=== PATIENT | female | born 1935 | race Caucasian/White ===

== ENCOUNTER 2019-02-21 06:38 | Emergency (ER) | payer OTHER, SELFPAY ==
[2019-02-21 06:46] VITALS: BP 116/53; PULSE 60; RESP 18; TEMP 36.1; O2SAT 96
[2019-02-21 07:19] LABS: Add Manual Diff / Slide Review NO; Basophils Absolute Auto 100 /uL (0-100); Basophils Percent Auto 0.8 % (0-2); Eosinophils Absolute Auto 200 /uL (0-450); Eosinophils Percent Auto 2.2 % (2-4); Hematocrit 38.1 % (36-46); Hemoglobin 12.8 g/dL (12.0-16.0); Lymphocytes Absolute Auto 4300 /uL (1100-4500); Lymphocytes Percent Auto 52.3 % (25-40); Mean Corpuscular HGB Conc 33.7 % (30-36); Mean Corpuscular Hemoglobin 31.6 PG (26-34); Mean Corpuscular Volume 93.9 fL (80-100); Monocytes Absolute Auto 800 /uL (0-900); Monocytes Percent Auto 9.7 % (3-14); Neutrophils Absolute Auto 2900 /uL (1500-7000); Platelet Count 177 X10^3/uL (150-400); Red Blood Cell Count 4.06 X10^6/uL (4.0-5.2); Red Cell Distribution Width 13.4 % (11.6-14.8); White Blood Cell Count 8.2 X10^3/uL (4.5-11.0)
[2019-02-21 07:23] LABS: Alanine Aminotransferase 28 IU/L (9-52); Albumin 3.8 g/dL (3.5-5.0); Albumin Globulin Ratio 1.6 (1.0-2.8); Alkaline Phosphatase 62 U/L (38-126); Aspartate Aminotransferase 24 IU/L (14-36); BUN Creatinine Ratio 28.3 (6-22); Bilirubin Total 0.7 mg/dL (0.2-1.3); Blood Urea Nitrogen 17 mg/dL (7-17); Calcium 8.9 mg/dL (8.4-10.2); Carbon Dioxide 29 mmol/L (22-32); Chloride 104 mmol/L (98-107); Estimated Glomerular Filt Rate > 60.0 mL/min (>60); Globulin 2.4 g/dL (1.7-4.1); Glucose 134 mg/dL (80-110); HEMOLYSIS < 15 (0-50); Potassium 3.7 mmol/L (3.4-5.1); Sodium 141 mmol/L (137-145); Total Protein 6.2 g/dL (6.3-8.2)
[2019-02-21] MEDS: SODIUM CHLORIDE 0.9% 1,000 ML 150 ML IV (07:23)
[2019-02-21] MEDS: ONDANSETRON 4 MG/2 ML INJ IV (07:23)
[2019-02-21 07:34] LABS: Troponin I < 0.012 ng/mL (0.01-0.034)
[2019-02-21 07:36] VITALS: BP 112/59; PULSE 64; RESP 11; O2SAT 91
--- NOTE | 2019-02-21 08:25 | ED_ITS ---
HPI - Dizziness General Chief Complaint: Dizziness Stated Complaint: Dizzy Time Seen by Provider: 02/21/19 07:04 Source: patient and EMS Mode of arrival: EMS Limitations: no limitations History of Present Illness HPI Narrative: This is an 83-year-old female who comes to the emergency department complaining of dizziness. Patient states that she has had pain on the left side of her neck with discomfort trying to rotate right for the last several days. [place] and was pa inting and sort of a uncomfortable position for a long period of time. She states since then she has continued have some discomfort. She took codeine at 3:00 p.m. yesterday then again at 9:00 p.m. and then at 2:30 a.m. in the morning. She states she was feeling okay that the pain kind of improved although still there lightly. She was sitting up drinking some coffee with her when she started feeling sweaty and very nauseated and dizzy. She describes her dizziness as feeling like her head was filling up while she was sitting upright. She states she has a history of seizures and sort of felt like that but she did have any actual seizure activity. She denies any vertigo or room spinning. She does not feel like she was going to pass out. She denies any headache. She continues to have some nausea and had some vomiting with EMS but not currently. She denies chest pain she thinks she may feel little short of breath but she is not sure. She denies any issues with some abdominal pain, no frequency urgency or dysuria or diarrhea constipation. She denies any weakness or numbness or difficulty with her extremities or walking. Patient states she has a history of being on a statin only. She does take some fish oil which she recently started. 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 She has had Mohs surgery and tonsillectomy. Denies any tobacco, occasional alcohol, no illicit day Dr. Yo is her PCP. Related Data Home Medications Medication Instructions Recorded Confirmed aspirin 81 mg PO QDAY #0 12/21/16 atorvastatin [Lipitor] 5 mg PO QDAY #0 12/21/16 Previous Rx's Medication Instructions Recorded cephalexin [Keflex] 500 mg PO Q6H 7 Days #0 cap 03/28/18 Allergies Allergy/AdvReac Type Severity Reaction Status Date / Time norepinephrine Allergy Unknown Verified 02/21/19 08:08 [NOREPINEPHRINE] Review of Systems Review of Systems ROS Unobtainable: All systems reviewed & are unremarkable except as noted in HPI and below Constitutional Denies chills, Denies fever(s), Denies headache(s), Denies lethargy and Denies weakness ENT Ears, Nose, Mouth, and Throat: Denies vertigo, Reports dizziness, Denies ear discharge, Denies otalgia, Denies headache(s), Denies neck mass, Reports neck pain and Denies disequilibrium Cardiovascular Denies chest pain, Reports diaphoresis, Denies syncope, Denies rapid heart rate, Denies edema, Denies irregular heart rhythm, Denies lightheadedness, Denies radiating jaw, neck or arm pain, Denies palpitations, Reports dyspnea, Denies dyspnea on exertion and Denies orthopnea Respiratory Denies change in phlegm color, Denies chest congestion, Denies cough, Reports dyspnea, Denies dyspnea on exertion and Denies wheezing Gastrointestinal Gastrointestinal: Denies abdominal pain, Denies change in bowel habits, Denies diarrhea, Reports nausea and Reports vomiting Genitourinary Denies hematuria, Denies urinary frequency, Denies dysuria, Denies flank pain, Denies urinary incontinence, Denies urinary hesitancy and Denies urinary urgency Musculoskeletal Reports as per HPI, Denies abnormal gait, Denies back pain, Reports limited range of motion, Reports neck pain, Denies numbness, Denies radiating pain into limb, Reports stiffness and Denies tingling Integumentary/Breasts Denies pruritus, Denies erythema, Denies rash and Denies wounds Neurologic Reports as per HPI, Denies abnormal movements, Denies abnormal speech, Denies abnormal gait, Denies vertigo, Reports dizziness, Denies syncope, Denies headache(s), Denies focal weakness, Denies numbness, Denies seizure-like activity, Denies sensory deficit, Denies tingling, Denies disequilibrium and Denies weakness Endocrine Denies palpitations Allergic/Immunologic Denies wheezing PFSH Social History Smoking Status: Never smoker Social History Smoking Status: Never smoker Exam Narrative Exam Narrative: GEN: well nourished, well appearing elderly female, alert and oriented x 3, patient appears to be in mild distress. HEENT: Atraumatic, pupils are equal round reactive to light, extraocular movements are intact, no nystagmus, nares are clear, TMs are clear with no fluid, there is no conjunctival pallor. Throat is clear without any exudates, erythema, tonsillar enlargement or uvular deviation, no facial droop. HEART: Regular rate and rhythm without murmur, clicks, rubs. No carotid bruits, pulses are equal in upper and lower extremities LUNGS:Lungs clear to auscultation, no wheezes, rales, crackles, chest moves symmetrically ABD:bowel sounds normal, soft, non-tender, no guarding, rebound, rigidity, no ma sses noted, no hepatosplenomegaly MSCL: Non-tender, no muscle atrophy, muscles strength 5/5 upper and lower extremities, full range of motion, gait not tested NEURO:CN 2-12 intact, sensation normal, reflexes 2/4 upper and lower extremities. finger nose finger test normal, heel felix test normal. Initial Vital Signs Initial Vital Signs: Vital Signs Temperature 96.9 F L 02/21/19 06:46 Pulse Rate 60 02/21/19 06:46 Respiratory Rate 18 02/21/19 06:46 Blood Pressure 116/53 L 02/21/19 06:46 Pulse Oximetry 96 02/21/19 06:46 Scores GCS Gideon coma scale eye opening: Spontaneous Gideon coma scale verbal response: Orientated Gideon coma scale motor response: Obey commands Gideon coma scale total score: 15 NIH Stroke Scale Level of Conciousness: Alert, keenly responsive Ask month/age: Answers both questions correctly. Open/close eyes, close hand: Performs both tasks correctly Best gaze horizontal: Normal Visual dorado: No visual loss Facial palsy: Normal symetrical movement Left arm drift: No drift for full 10 sec Right arm drift: No drift for full 10 sec Left leg drift: No drift for full 10 sec Right leg drift: No drift for full 10 sec Limb ataxia: Absent Sensory on face/arms/legs: Normal, no sensory loss Best language: No aphasia, normal Dysarthria: Normal Extinction or inattention: No abnormality Total NIH Stroke scale score: 0 Course Orders Ordered: Discontinued Medications Sodium Chloride (Normal Saline 0.9%) 1,000 mls @ 150 mls/hr IV CONT CRUZITO Last Infusion: 02/21/19 11:27 Dose: 0 mls/hr Admin: 02/21/19 07:23 Dose: 150 mls/hr Ondansetron HCl (Zofran) 4 mg IV NOW ONE Stop: 02/21/19 07:08 Last Admin: 02/21/19 07:23 Dose: 4 mg Vital Signs - 8 hr 02/21/19 11:00 02/21/19 11:23 Pulse Rate 75 75 Respiratory Rate 16 20 Blood Pressure 122/51 L Blood Pressure [Left Arm] 122/51 L Pulse Oximetry 97 97 MDM - Dizziness Lab Data Attestation: I reviewed the patient's lab results. Result diagrams: 02/21/19 06:30 02/21/19 06:30 Lab Results 02/21/19 02/21/19 02/21/19 Range/Units 06:30 06:30 06:30 WBC 8.2 (4.5-11.0) X10^3/uL RBC 4.06 (4.0-5.2) X10^6/uL Hgb 12.8 (12.0-16.0) g/dL Hct 38.1 (36-46) % MCV 93.9 (80-100) fL MCH 31.6 (26-34) PG MCHC 33.7 (30-36) % RDW 13.4 (11.6-14.8) % Plt Count 177 (150-400) X10^3/uL Neut % (Auto) 35.0 L (50-75) % Lymph % (Auto) 52.3 H (25-40) % [place] % (Auto) 9.7 (3-14) % Eos % (Auto) 2.2 (2-4) % Baso % (Auto) 0.8 (0-2) % Neut # (Auto) 2900 (5797-7827) /uL Lymph # (Auto) 4300 (6451-3184) /uL [place] # (Auto) 800 (0-900) /uL Eos # (Auto) 200 (0-450) /uL Baso # (Auto) 100 (0-100) /uL Sodium 141 (137-145) mmol/L Potassium 3.7 (3.4-5.1) mmol/L Chloride 104 (98-107) mmol/L Carbon Dioxide 29 (22-32) mmol/L BUN 17 (7-17) mg/dL Creatinine 0.60 (0.52-1.04) mg/dL Estimated GFR > 60.0 (>60) mL/min BUN/Creatinine Ratio 28.3 H (6-22) Glucose 134 H (80-110) mg/dL Calcium 8.9 (8.4-10.2) mg/dL Total Bilirubin 0.7 (0.2-1.3) mg/dL AST 24 (14-36) IU/L ALT 28 (9-52) IU/L Alkaline Phosphatase 62 (38-126) U/L Troponin I < 0.012 (0.01-0.034) ng/mL Total Protein 6.2 L (6.3-8.2) g/dL Albumin 3.8 (3.5-5.0) g/dL Globulin 2.4 (1.7-4.1) g/dL Albumin/Globulin Ratio 1.6 (1.0-2.8) Lipase 319 H (23-300) U/L Point of Care Testing Glucose POC 134 Urine Dip Bedside Urine Glucose Negative Bedside Urine Bilirubin - Negative Bedside Urine Ketone +/- 5 Urine Specific [place] 1.010 Bedside Urine Occult Blood - Negative Bedside Urine pH 8 Bedside Urine Protein - Negative Bedside Urine Urobilinogen - Negative Bedside Urine Nitrite - Negative Bedside Urine Leukocytes - Negative Esterase Imaging Data Head and neck angio: Radiologist's impression: Arlette Schneider 83 [address] [place] [address] CT Scan Report Signed Patient: WyattArlette R#: [id number] : 8Acct:[id number] Age/Sex: 83 / FDate of Service: 02/21/19 Loc: ED Accession Number: [id number] Procedure: CT angio head and neck Ordering Provider: Glo Perdomo D.O. PROCEDURE: CT ANGIO HEAD AND NECK INDICATIONS: dizziness, neck pain, nausea TECHNIQUE: Pre-contrast 4.5 mm thick sections acquired from the foramen magnum to the vertex. After the administration of intravenous contrast, 1 mm thick sections acquired from the aortic arch through the [place] of Brand. Post-contrast 4.5 mm thick sections then re- acquired from the foramen magnum to the vertex. 3-dimensional aijiylm-yrifeimak-dhynmihz on (MIP) and/or volume rendering reformats were acquired of the central intracranial vasculature and neck separately. COMPARISON: [facility], CT, HEAD W&WO CONTRAST, 10/21/2017, 7:47. [facility], MR, BRAIN (IAC) W AND WO CONTRAST, 11/18/2006, 7:54. FINDINGS: Image quality: Excellent. BRAIN: CSF spaces: Ventricles are normal in size and shape. Basal cisterns are patent. No extra-axial fluid collections. Brain: No midline shift. No intracranial bleeds or masses. [place]-white matter interface appears intact. Skull and face: Calvarium and facial bones appear intact, without suspicious lesions. Orbits appear normal. Sinuses: Sinuses and mastoids are clear. HEAD CT ANGIOGRAPHY: Anterior circulation: Intracranial internal carotid arteries are normal in size and flow. The flow within the paired anterior cerebral arteries is normal and sym metric. The flow within the middle cerebral arteries is normal and symmetric. The anterior communicating artery is seen. No aneurysms are seen. Posterior circulation: Visualized portions of the vertebral arteries demonstrate normal caliber, and join to form a normal appearing basilar artery. Flow within the posterior cerebral arteries is normal and symmetric. No aneurysms are seen. NECK CT ANGIOGRAPHY: Carotid system: The great vessels demonstrate a conventional anatomy as they arise from the aortic arch. The origins of the common carotid arteries appear patent. The common carotid arteries demonstrate normal caliber and courses. The bifurcation regions are both widely patent. The internal carotid arteries demonstrate normal calibers and courses. Posterior circulation: The origins of the vertebral arteries both appear widely patent. The more superior extracranial portions of both vertebral arteries also demonstrate normal courses and calibers. They join to form a normal appearing basilar artery. Soft tissues: Visualized neck soft tissues demonstrate no suspicious abnormalities. Bones: No suspicious bony lesions. Visualized cervical spine appears normally aligned. Cervical spine degenerative changes can be seen. IMPRESSION: No significant intracranial abnormality is seen. Unremarkable intracranial arteries, without findings of stenosis or occlusion. Within the arteries of the neck, no hemodynamically significant stenosis can be seen. Any quantitative measurements of stenosis were performed using NASCET criteria. Dictated by: Ron Rivera M.D. on 02/21/2019 at 8:17 Approved by: Ron Rivera M.D. on 02/21/2019 at 8:20 Chest x-ray: Radiologist's impression: [address] [address] XRay Report Signed Patient: Arlette Schneider JMR#: [id number] : 8Acct:[id number] Age/Sex: 83 / FDate of Service: 02/21/19 Loc: ED Accession Number: [id number] Procedure: XR chest 1V Ordering Provider: Glo Perdomo D.O. PROCEDURE: XR CHEST 1V INDICATIONS: dizziness, neck pain, nausea TECHNIQUE: One view of the chest was acquired. COMPARISON: [facility], , CHEST 1 VIEW, 10/12/2017, 3:45. [facility], , CHEST 1 VIEW, 12/21/2016, 18:30. FINDINGS: Surgical changes and devices: None. Lungs and pleura: Lungs are clear. No pleural effusions or pneumothorax. Mediastinum: Mediastinal contours appear normal. Heart size is normal. Bones and chest wall: No suspicious bony lesions. Overlying soft tissues appear unremarkable. IMPRESSION: Normal for age, source of current dizziness, neck pain and nausea symptoms is not seen. Dictated by: Mateo Pretty M.D. on 02/21/2019 at 8:59 Approved by: Mateo Pretty M.D. on 02/21/2019 at 9:01 ECG Data Attestation: I personally reviewed and interpreted this ECG as follows: Prior ECG tracings: available for review Interpretation: Sinus rhythm with first-degree AV block, right bundle branch, rate of 63 DC 234 QRS of 103 and QTC of 441. No ST changes that are new. MDM Narrative Medical decision making narrative: Patient comes in with complaint of dizziness by her description does not sound like vertigo. She does not sound lightheaded or like she is going to pass out. She has been complaining of pain in her neck which could be musculoskeletal but with her new onset dizziness, sweating and nausea felt it would be appropriate to get a head CT and angiography to evaluate for any sort of obstruction or dissection. Patient NIH is 0 and her descriptive symptoms otherwise do not fit with a stroke nor does her physical exam. Lab work shows a CBC which is normal, a PTT of 22, CMP shows glucose of 134 electrolytes and renal function are normal along with LFTs and troponin is negative. Chest x-ray and CTA of the head and neck are negative. Patient is ambulating without much issue. Patient urinated but then dumped into the toilet so we did not get a sample. Given some oral hydration and and attempted to get another sample. Discharge Plan Departure Patient Disposition: Home Clinical Impression: Dizziness Discharge Date/Time: 02/21/19 11:32 Interventions: ED Discharge Assessment Last Done: 02/21/19 11:23 Instructions: DI for Dizziness-Nonvertigo Activity Restrictions/Additional Instructions: Follow-up with primary care in the next 24-48 hours for recheck. You may continue home medications as prescribed. Return to the emergency department for sudden severe headaches, new weakness, numbness, vision changes or difficulty with speech severe neck or back pain, persistent vomiting, passing out, loss of bowel or bladder control or other new or concerning symptoms. Prescriptions: No Action atorvastatin [Lipitor] 10 MG tablet 5 mg PO QDAY Qty: 0 RF: 0 aspirin 81 MG tablet,delayed release (DR/EC) 81 mg PO QDAY Qty: 0 RF: 0 cephalexin [Keflex] 500 MG capsule 500 mg PO Q6H 7 Days Qty: 0 RF: 0 Referrals: Jose Yo MD [Primary Care Provider] - ED Cosign/Signout Cosign ED Attending Cosignature Attestation: I was immediately available in the department for consultation. This documentation has been reviewed and I agree with assessment and plan. Supervised by Glo Perdomo DO
[2019-02-21 08:45] LABS: Lipase 319 U/L (23-300)
--- NOTE | 2019-02-21 09:01 | DI.CT.S_ITS ---
PROCEDURE: CT ANGIO HEAD AND NECK INDICATIONS: dizziness, neck pain, nausea TECHNIQUE: Pre-contrast 4.5 mm thick sections acquired from the foramen magnum to the vertex. After the administration of intravenous contrast, 1 mm thick sections acquired from the aortic arch through the [place] of Brand. Post-contrast 4.5 mm thick sections then re-acquired from the foramen magnum to the vertex. 3-dimensional tikfcrj-podwzctwz-tvnvlzguzc (MIP) and/or volume rendering reformats were acquired of the central intracranial vasculature and neck separately. COMPARISON: [facility], CT, HEAD W&WO CONTRAST, 10/21/2017, 7:47. [facility], MR, BRAIN (IAC) W AND WO CONTRAST, 11/18/2006, 7:54. FINDINGS: Image quality: Excellent. BRAIN: CSF spaces: Ventricles are normal in size and shape. Basal cisterns are patent. No extra-axial fluid collections. Brain: No midline shift. No intracranial bleeds or masses. Bag[place]-white matter interface appears intact. Skull and face: Calvarium and facial bones appear intact, without suspicious lesions. Orbits appear normal. Sinuses: Sinuses and mastoids are clear. HEAD CT ANGIOGRAPHY: Anterior circulation: Intracranial internal carotid arteries are normal in size and flow. The flow within the paired anterior cerebral arteries is normal and symmetric. The flow within the middle cerebral arteries is normal and symmetric. The anterior communicating artery is seen. No aneurysms are seen. Posterior circulation: Visualized portions of the vertebral arteries demonstrate normal caliber, and join to form a normal appearing basilar artery. Flow within the posterior cerebral arteries is normal and symmetric. No aneurysms are seen. NECK CT ANGIOGRAPHY: Carotid system: The great vessels demonstrate a conventional anatomy as they arise from the aortic arch. The origins of the common carotid arteries appear patent. The common carotid arteries demonstrate normal caliber and courses. The bifurcation regions are both widely patent. The internal carotid arteries demonstrate normal calibers and courses. Posterior circulation: The origins of the vertebral arteries both appear widely patent. The more superior extracranial portions of both vertebral arteries also demonstrate normal courses and calibers. They join to form a normal appearing basilar artery. Soft tissues: Visualized neck soft tissues demonstrate no suspicious abnormalities. Bones: No suspicious bony lesions. Visualized cervical spine appears normally aligned. Cervical spine degenerative changes can be seen. IMPRESSION: No significant intracranial abnormality is seen. Unremarkable intracranial arteries, without findings of stenosis or occlusion. Within the arteries of the neck, no hemodynamically significant stenosis can be seen. Any quantitative measurements of stenosis were performed using NASCET criteria. Dictated by: Ron Rivera M.D. on 02/21/2019 at 8:17 Approved by: Ron Rivera M.D. on 02/21/2019 at 8:20
[2019-02-21 09:05] VITALS: BP 135/65; PULSE 66; RESP 12; O2SAT 100
[2019-02-21 10:14] VITALS: BP 120/58; PULSE 69; RESP 11; O2SAT 93
[2019-02-21 11:00] VITALS: BP 122/51; PULSE 75; RESP 16; O2SAT 97
[2019-02-21 11:23] VITALS: BP 122/51; PULSE 75; RESP 20; O2SAT 97
== END 2019-02-21 11:32 | disposition home or self-care (01) ==
PROVIDERS: Emergency Medicine; Emergency Provider Emergency Medicine; Family Provider Family Medicine; PCP Family Medicine
DX: R42 Dizziness and giddiness (principal)
CPT/HCPCS: 70496; 70498; 71045; 80053; 81003; 82962; 83690; 84484; 85025; 93005; 93010; 96361; 96374; 99283; 99285; J2405; Q9967

== ENCOUNTER 2019-08-02 14:41 | Emergency (ER) | payer OTHER, SELFPAY ==
[2019-08-02 14:52] VITALS: BP 122/66; PULSE 67; RESP 15; TEMP 36.4; O2SAT 98; BMI 25.7
--- NOTE | 2019-08-02 14:52 | DI.RAD.S_ITS ---
PROCEDURE: XR CHEST 1V INDICATIONS: chest pain TECHNIQUE: One view of the chest was acquired. COMPARISON: [facility], CR, XR CHEST 1V, 02/21/2019, 8:43. FINDINGS: Surgical changes and devices: None. Lungs and pleura: Lungs are clear. No pleural effusions or pneumothorax. Mediastinum: Mediastinal contours appear normal. Heart size is normal. Bones and chest wall: No suspicious bony lesions. Overlying soft tissues appear unremarkable. IMPRESSION: No acute cardiopulmonary disease process. Dictated by: Malorie Gilliam MD, PhD on 08/02/2019 at 15:07 Approved by: Malorie Gilliam MD, PhD on 08/02/2019 at 15:08
[2019-08-02 15:13] VITALS: BP 98/59; PULSE 73; RESP 14; O2SAT 96
[2019-08-02 15:20] LABS: Add Manual Diff / Slide Review NO; Basophils Absolute Auto 100 /uL (0-100); Basophils Percent Auto 1.1 % (0-2); Eosinophils Absolute Auto 100 /uL (0-450); Hematocrit 38.8 % (36-46); Hemoglobin 13.1 g/dL (12.0-16.0); Lymphocytes Absolute Auto 2200 /uL (1100-4500); Lymphocytes Percent Auto 31.5 % (25-40); Mean Corpuscular HGB Conc 33.8 % (30-36); Mean Corpuscular Volume 94.7 fL (80-100); Monocytes Absolute Auto 800 /uL (0-900); Monocytes Percent Auto 10.9 % (3-14); Neutrophils Absolute Auto 3800 /uL (1500-7000); Neutrophils Percent Auto 54.5 % (50-75); Platelet Count 173 X10^3/uL (150-400); Red Cell Distribution Width 13.4 % (11.6-14.8)
[2019-08-02 15:25] LABS: INR 0.9 (0.9-1.3); Prothrombin Time 10.6 SECONDS (10.1-12.7)
[2019-08-02 15:28] LABS: PTT Partial Thromboplastin Tim 28 SECONDS (26.4-36.2)
[2019-08-02 15:30] LABS: Alanine Aminotransferase 25 IU/L (<35); Albumin 4.2 g/dL (3.5-5.0); Albumin Globulin Ratio 1.6 (1.0-2.8); Alkaline Phosphatase 56 U/L (38-126); Aspartate Aminotransferase 58 IU/L (14-36); Bilirubin Total 0.3 mg/dL (0.2-1.3); Blood Urea Nitrogen 24 mg/dL (7-17); Calcium 9.2 mg/dL (8.4-10.2); Carbon Dioxide 31 mmol/L (22-32); Chloride 103 mmol/L (98-107); Creatine Kinase 236 U/L (30-135); Estimated Glomerular Filt Rate > 60.0 mL/min (>60); Globulin 2.6 g/dL (1.7-4.1); Glucose 70 mg/dL (80-110); HEMOLYSIS 24 (0-50); Lipase 243 U/L (23-300); Sodium 139 mmol/L (137-145); Total Protein 6.8 g/dL (6.3-8.2)
[2019-08-02 15:39] VITALS: BP 98/51; PULSE 70; RESP 15; O2SAT 95
[2019-08-02 16:12] LABS: CKMB % Relative Index 6.9 % (1.5-5.0)
[2019-08-02 16:21] VITALS: BP 103/51; PULSE 71; RESP 15; O2SAT 98
--- NOTE | 2019-08-02 17:07 | ED.CHESTPAIN ---
HPI - Chest Pain General Chief Complaint: Chest Pain Stated Complaint: Chest Pain thinks heart attack Time Seen by Provider: 08/02/19 15:01 Source: patient Mode of arrival: Ambulatory Limitations: no limitations History of Present Illness HPI narrative: Patient complains of a band like sensation of chest pain/pressure that started yesterday afternoon while she was shoveling snow. She characterizes it as a 5/10, made worse by the exertion of shoveling snow but not completely improved by anything. She states it lasted for the rest of the day. When patient woke up this morning, she states the pain was gone but the patient states she ?just didn't feel right?. Patient denies chest pain at this time. No shortness of breath or nausea. No abdominal pain. No fevers, chills, or cough. Patient has no history of coronary artery disease that she knows of. She states she is healthy other than hyperlipidemia, and takes a small dose of Lipitor on a daily basis for this. She states her cholesterol has been well controlled on the Lipitor. No other complaints at this time. Related Data Home Medications Medication Instructions Recorded Confirmed atorvastatin [Lipitor] 5 mg PO DAILY #0 12/21/16 08/02/19 Allergies Allergy/AdvReac Type Severity Reaction Status Date / Time norepinephrine Allergy Unknown Verified 08/02/19 14:52 [NOREPINEPHRINE] Review of Systems Constitutional Constitutional: Denies chills, Denies fatigue, Denies fever(s), Denies frequent falls, Denies lethargy and Denies weakness Eyes Eyes: Denies change in vision, Denies eye discharge, Denies irritation and Denies loss of vision ENT Ears, Nose, Mouth, and Throat: Denies change in voice, Denies dizziness, Denies neck pain, Denies sore throat and Denies throat swelling Cardiovascular Cardiovascular: Reports chest pain, Denies irregular heart rhythm, Reports lightheadedness, Denies palpitations, Denies dyspnea, Denies dyspnea on exertion and Denies orthopnea Respiratory Respiratory: Denies cough, Denies dyspnea, Denies dyspnea on exertion and Denies wheezing Gastrointestinal Gastrointestinal: Denies abdominal pain, Denies change in bowel habits, Denies diarrhea, Denies nausea and Denies vomiting Genitourinary Genitourinary: Denies hematuria, Denies flank pain, Denies urinary incontinence and Denies urinary urgency Musculoskeletal Musculoskeletal: Denies back pain, Denies muscle weakness, Denies neck pain, Denies numbness and Denies tingling Integumentary/Breasts Skin/Breast: Denies pruritus, Denies erythema, Denies rash and Denies wounds Neurologic Neurologic: Denies behavioral changes, Denies confusion, Denies dizziness, Denies frequent falls, Denies loss of vision, Denies numbness, Denies tingling and Denies weakness Psychiatric Psychiatric: Denies anxiety, Denies behavioral changes, Denies confusion, Denies depression, Denies homicidal ideation and Denies suicidal ideation Endocrine Endocrine: Denies fatigue, Denies flushing and Denies palpitations Hematologic/Lymphatic Hematologic/Lymphatic: Denies easy bruising Allergic/Immunologic Allergic/Immunologic: Denies urticaria, Denies throat swelling and Denies wheezing Patient History Medical History Hyperlipidemia (Acute) Seizure (Acute) Social History Smoking Status: Never smoker Smoking Status: Never smoker alcohol intake frequency: a few times a month Substance Use Type: does not use Exam Initial Vital Signs Initial Vital Signs: Vital Signs Temperature 97.5 F L 08/02/19 14:52 Pulse Rate 67 08/02/19 14:52 Respiratory Rate 15 08/02/19 14:52 Blood Pressure 122/66 08/02/19 14:52 Pulse Oximetry 98 08/02/19 14:52 Const General: cooperative and well developed Nutritional Appearance: well nourished [facility] Head: normocephalic and atraumatic Ears: external ears normal Nose: external nose normal and No nasal discharge Face and sinus: face symmetric and No dry mucous membranes Mouth: oral mucosae normal and moist mucous membranes Teeth and gingiva: dentition normal Eyes General: appearance normal, both eyes and all related structures Eyelids: eyelids normal Conjunctivae: conjunctivae normal Sclera: sclerae normal Pupils: PERRL EOM: EOM intact bilaterally Neck Neck: normal visual inspection, trachea midline, No lymphadenopathy, No midline deformity and No JVD Lymphatic: No lymphedema Chest Chest: normal inspection of the chest Resp Effort & Inspection: normal respiratory effort, able to speak in complete sentences, no respiratory distress and no use of accessory muscles Auscultation: clear to auscultation bilaterally, no rales, no rhonchi and no wheezes Cardio Rate: regular rate Rhythm: regular rhythm Heart Sounds: no click, no gallops, no murmurs and no rubs Pulses: normal peripheral pulses GI Inspection: non-distended Palpation: soft, no hepatosplenomegaly, No guarding, No pulsatile mass and No tender Auscultation: normal bowel sounds Back/Spine/Pelvis Back: No CVA tenderness Cervical Spine: cervical ROM normal and No pain with cervical ROM Thoracic/Lumbar Spine: thoracic and lumbar spine normal to inspection Skin General: no rashes or lesions noted, No jaundice and No petechiae Neuro General: alert, oriented x3, gait normal and no focal motor deficits Speech: speech normal Extrem General: full ROM, no clubbing, cyanosis or edema, no pedal edema and no calf tenderness Psych Appearance: well kempt Mental Status: mental status grossly normal Attitude: cooperative Thought Content: normal and suicidality Judgment: judgment good Course Course Course Narrative: Patient was worked up with labs and EKG, as well as chest x-ray. She was found have an elevated troponin of 3.38, and an EKG showed a potential anterior infarct of on determined age. Troponin was consistent and my and as such, we did contact [facility] to set up transfer for the patient to a facility with cardiology services. Ultimately, the patient was accepted by Dr. Devries at [facility]. Patient was agreeable to the plan of transfer, as was her . She had been started on a heparin drip in the emergency department and given aspirin. [facility] did request that Plavix not be administered at this time. Additionally, because the patient's blood pressure was borderline normal to low, I did hold off on giving the patient metoprolol this time. Additionally, as the patient was chest pain-free at this time, she was not given nitroglycerin. Patient remained stable until the time of her transfer. Orders Ordered: ED Orders 08/02/19 14:52 XR chest 1V Stat 08/02/19 14:55 Complete Blood Count AUTO DIFF Stat Comprehensive Metabolic Panel Stat Lipase Stat Partial Thromboplastin Time Stat Prothrombin Time INR Stat Troponin & CK Cardiac Panel Stat EKG-12 Lead Stat Heparin Sodium/Dextrose (Heparin Drip) 25,000 unit in 500 mls @ 16.329 mls/hr IV CONT CRUZITO; Protocol Last Titration: 08/02/19 18:36 Dose: 0 units/kg/hr, 0 mls/hr Documented by: Admin: 08/02/19 17:19 Dose: 12 units/kg/hr, 16.329 mls/hr Documented by: ALLAN Discontinued Medications Aspirin (Aspirin Chew) 324 mg PO NOW ONE Stop: 08/02/19 17:12 Last Admin: 08/02/19 17:19 Dose: 324 mg Documented by: ALLAN Heparin Sodium (Porcine) (Heparin) 5,000 unit IV NOW ONE Stop: 08/02/19 17:07 Last Admin: 08/02/19 17:19 Dose: 5,000 unit Documented by: ALLAN Vital Signs Vital signs: Vital Signs - 8 hr 08/02/19 14:52 08/02/19 15:13 08/02/19 15:39 Temperature 97.5 F L Pulse Rate 67 73 70 Respiratory Rate 15 14 15 Blood Pressure 122/66 Blood Pressure [Left Arm] 98/59 L 98/51 L Pulse Oximetry 98 96 95 08/02/19 16:21 08/02/19 17:35 08/02/19 18:33 Temperature Pulse Rate 71 81 71 Respiratory Rate 15 16 12 Blood Pressure Blood Pressure [Left Arm] 103/51 L 118/61 107/53 L Pulse Oximetry 98 98 98 MDM - Chest Pain Medical Records Data Attestation: I reviewed the patient's medical records. Lab Data Attestation: I reviewed the patient's lab results. Result diagrams: 08/02/19 14:55 08/02/19 14:55 Labs: Lab Results 08/02/19 08/02/19 08/02/19 Range/Units 14:55 14:55 14:55 WBC 7.0 (4.5-11.0) X10^3/uL RBC 4.10 (4.0-5.2) X10^6/uL Hgb 13.1 (12.0-16.0) g/dL Hct 38.8 (36-46) % MCV 94.7 (80-100) fL MCH 32.0 (26-34) PG MCHC 33.8 (30-36) % RDW 13.4 (11.6-14.8) % Plt Count 173 (150-400) X10^3/uL Neut % (Auto) 54.5 (50-75) % Lymph % (Auto) 31.5 (25-40) % [place] % (Auto) 10.9 (3-14) % Eos % (Auto) 2.0 (2-4) % Baso % (Auto) 1.1 (0-2) % Neut # (Auto) 3800 (9874-2122) /uL Lymph # (Auto) 2200 (3417-1534) /uL [place] # (Auto) 800 (0-900) /uL Eos # (Auto) 100 (0-450) /uL Baso # (Auto) 100 (0-100) /uL PT 10.6 (10.1-12.7) SECONDS INR 0.9 (0.9-1.3) APTT 28 (26.4-36.2) SECONDS Sodium 139 (137-145) mmol/L Potassium 4.0 (3.4-5.1) mmol/L Chloride 103 (98-107) mmol/L Carbon Dioxide 31 (22-32) mmol/L BUN 24 H (7-17) mg/dL Creatinine 0.80 (0.52-1.04) mg/dL Estimated GFR > 60.0 (>60) mL/min BUN/Creatinine Ratio 30.0 H (6-22) Glucose 70 L (80-110) mg/dL Calcium 9.2 (8.4-10.2) mg/dL Total Bilirubin 0.3 (0.2-1.3) mg/dL AST 58 H (14-36) IU/L ALT 25 (<35) IU/L Alkaline Phosphatase 56 (38-126) U/L Total Creatine Kinase 236 H (30-135) U/L CK-MB (CK-2) 16.30 H (<2.37) ng/mL CK-MB (CK-2) Rel Index 6.9 H* (1.5-5.0) % Troponin I 3.380 H* (0.01-0.034) ng/mL Total Protein 6.8 (6.3-8.2) g/dL Albumin 4.2 (3.5-5.0) g/dL Globulin 2.6 (1.7-4.1) g/dL Albumin/Globulin Ratio 1.6 (1.0-2.8) Lipase 243 (23-300) U/L ABG Data Attestation: I personally reviewed and interpreted this ABG as follows: (See below) Interpretation: Twelve lead EKG performed August 02 2019 at 2:55 p.m., as follows: Regular ventricular rhythm with a rate of 71 beats per minute IN interval 208 milliseconds QRS duration 103 milliseconds QTC interval [address] T wave changes Interpretation: Sinus rhythm; low QRS voltage in precordial leads; possible anterior myocardial infarction of indeterminate age; no STEMI; abnormal EKG as interpreted by ED MD. Discharge Plan Departure Patient Disposition: [facility] Clinical Impression: Acute non-ST elevation myocardial infarction (NSTEMI) Prescriptions: No Action atorvastatin [Lipitor] 10 MG tablet 5 mg PO DAILY Qty: 0 RF: 0 Referrals: Jose Yo MD [Primary Care Provider] -
[2019-08-02] MEDS: ASPIRIN 81 MG CHEW TAB 324 MG PO (17:19)
[2019-08-02] MEDS: HEPARIN DRIP 25,000 UNIT/500 ML IV.SOLN 16.329 UNIT IV (17:19)
[2019-08-02] MEDS: HEPARIN 5,000 UNIT/ML VIAL 5000 UNIT IV (17:19)
[2019-08-02 17:35] VITALS: BP 118/61; PULSE 81; RESP 16; O2SAT 98
--- NOTE | 2019-08-02 18:29 | PC.NURSE ---
report called to rafi rivas at [facility]
[2019-08-02 18:33] VITALS: BP 107/53; PULSE 71; RESP 12; O2SAT 98
--- NOTE | 2019-08-02 18:35 | PC.NURSE ---
pt transported with heparin drip continuing
== END 2019-08-02 18:38 | disposition short-term general hospital (02) ==
PROVIDERS: Emergency Provider Emergency Medicine; Family Provider Family Medicine; PCP Family Medicine
DX: I21.4 Non-ST elevation (NSTEMI) myocardial infarction (principal); E78.5 Hyperlipidemia, unspecified
CPT/HCPCS: 36415; 71045; 80053; 82550; 82553; 83690; 84484; 85025; 85610; 85730; 93005; 96365; 96375; 99285; J1644

== ENCOUNTER → 2019-08-09 07:55 | Outpatient (ROUT) | payer OTHER, SELFPAY ==
[2019-08-09 08:20] LABS: Troponin I 0.065 ng/mL (0.01-0.034)
== END ==
PROVIDERS: Family Provider Family Medicine; PCP Family Medicine; Visit Provider Family Medicine
DX: I21.3 ST elevation (STEMI) myocardial infarction of unspecified site (principal); R07.89 Other chest pain
CPT/HCPCS: 84484

== ENCOUNTER → 2019-11-29 14:19 | Outpatient (CLI) | payer OTHER, SELFPAY ==
--- NOTE | 2019-11-29 | DI.RAD.S_ITS ---
PROCEDURE: XR LUMBAR SPINE MIN 4V INDICATIONS: LOWER BACK PAIN AND RADIALOPATHY TECHNIQUE: 5 views of the lumbar spine acquired. COMPARISON: None. FINDINGS: Bones: 5 nonrib-bearing vertebrae are present. There is mild rightward curvature of lumbar spine centered at L3 level. Grade 1 retrolisthesis at L1-2, L2-3 and L4-5 levels are seen. No vertebral body compression fractures. Moderate to severe degenerative disc disease and bilateral facet arthrosis throughout lumbar spine is seen. No suspicious bony lesions. Soft tissues: Overlying bowel gas pattern is normal. No suspicious soft tissue calcifications. Flexion/extension: There is decreased range of motion with preserved lumbar spine alignment. IMPRESSION: Degenerative disc disease throughout lumbar spine with grade 1 retrolisthesis at L1-2, L2-3 and L4-5 levels. No acute compression fracture. Decreased range of motion with preserved lumbar spine alignment. Dictated by: Pratik Hernandez M.D. on 11/29/2019 at 16:06 Approved by: Pratik Hernandez M.D. on 11/29/2019 at 16:08
--- NOTE | 2019-11-29 | DI.RAD.S_ITS ---
PROCEDURE: XR HIP W PEL IF DONE LT MIN 4V INDICATIONS: LOWER BACK PAIN AND RADIALOPATHY TECHNIQUE: AP pelvis with lateral view(s) of the bilateral hip(s). COMPARISON: None. FINDINGS: Bones: No fractures or dislocations. Pelvic ring appears intact. Bilateral hip joint osteophytic changes are seen with joint space narrowing and subchondral sclerosis. No evidence of avascular necrosis of femoral heads. No suspicious bony lesions. Soft tissues: The visualized bowel gas pattern is normal. No suspicious soft tissue calcifications. IMPRESSION: Bilateral hip joint osteoarthritis. No hip fracture or dislocation. No evidence of avascular necrosis. Dictated by: Pratik Hernandez M.D. on 11/29/2019 at 15:57 Approved by: Pratik Hernandez M.D. on 11/29/2019 at 15:58
== END ==
PROVIDERS: Family Provider Family Medicine; PCP Family Medicine; Referring Provider Neurological Surgery; Visit Provider Neurological Surgery
DX: M54.5 Low back pain (principal); M47.26 Other spondylosis with radiculopathy, lumbar region; M51.16 Intervertebral disc disorders with radiculopathy, lumbar region; M16.0 Bilateral primary osteoarthritis of hip; M43.16 Spondylolisthesis, lumbar region
CPT/HCPCS: 72110; 73522

== ENCOUNTER → 2020-08-23 17:13 | Outpatient (CLI) | payer OTHER, SELFPAY | PROVIDERS: Visit Provider Nurse Practitioner | DX: N34.3 Urethral syndrome, unspecified (principal) | CPT/HCPCS: 87077; 87086; 87186 ==

== ENCOUNTER → 2020-10-03 12:05 | Outpatient (CLI) | payer OTHER, SELFPAY ==
--- NOTE | 2020-10-03 | DI.US.S_ITS ---
PROCEDURE: US RENAL COMPLETE INDICATIONS: UTI TECHNIQUE: Real-time scanning was performed of the kidneys and bladder, with image documentation. COMPARISON: None. FINDINGS: Kidneys: Kidneys are normal in size. Right kidney measures 11.4 cm long; left kidney measures 10.3 cm long. Right renal cortical thickness is 1.5 cm; left renal cortical thickness is 1.3 cm. Renal cortical echotexture is normal. 9 millimeter nonobstructing stone noted in the upper pole of the left kidney. 7 millimeter nonobstructing stone noted in the midpole of the left kidney. No hydronephrosis. No suspicious solid mass lesions. Bladder: Pre-void bladder volume is 132 mL. Post-void residual is 45 mL. Pre-void images demonstrate no intraluminal masses or stones. On pre-void images, right ureteral jet is noted with color Doppler interrogation. (Of note, ureteral jets may not be detectable in up to 25% of cases due to insufficient differences in specific gravity between ureteral and bladder urine). Miscellaneous: No free pelvic fluid. IMPRESSION: 1. Nonobstructing left renal stones. 2. No hydronephrosis. Dictated by: Malorie Gilliam MD, PhD on 10/03/2020 at 16:56 Approved by: Malorie Gilliam MD, PhD on 10/03/2020 at 16:58
== END ==
PROVIDERS: PCP Family Medicine; Referring Provider Nurse Practitioner Family; Visit Provider Nurse Practitioner Family
DX: N39.0 Urinary tract infection, site not specified (principal); R32 Unspecified urinary incontinence
CPT/HCPCS: 76770

== ENCOUNTER → 2020-11-04 10:43 | Outpatient (CLI) | payer OTHER, SELFPAY ==
--- NOTE | 2020-11-04 | DI.US.S_ITS ---
PROCEDURE: US PELVIC COMPLETE INDICATIONS: PELVIC AND PERINEAL PAIN TECHNIQUE: Real-time scanning was performed of the pelvic organs, with image documentation. Additional endovaginal scanning was necessary due to incomplete visualization of the adnexal and endometrial structures by transabdominal scanning. COMPARISON: [facility], , PELVIC COMPLETE, 01/25/2014, 7:54. FINDINGS: Uterus: Uterus is normal in size at 6.7 x 4.8 x 2.6 cm. The endometrium measures 3 mm in combined thickness. A complex cystic area can be seen within the fundal endometrium that measures 3 x 6 x 1 mm. A small amount of simple fluid can be seen elsewhere along the endometrial stripe. Incidental note is made of nabothian cysts. Ovaries: Neither ovary is well seen. No adnexal masses are seen on either side. Other: No pathologic free abdominal or pelvic fluid. IMPRESSION: There is a complex cystic area seen involving the fundal endometrium that measures up to 6 mm. The endometrial stripe is not thickened in this postmenopausal patient. Dictated by: Ron Rivera M.D. on 11/04/2020 at 10:52 Approved by: Ron Rivera M.D. on 11/04/2020 at 10:53
== END ==
PROVIDERS: PCP Family Medicine; Referring Provider Nurse Practitioner Family; Visit Provider Nurse Practitioner Family
DX: R10.2 Pelvic and perineal pain (principal); N85.8 Other specified noninflammatory disorders of uterus
CPT/HCPCS: 76830; 76856

== ENCOUNTER → 2020-12-05 11:58 | Outpatient (CLI) | payer OTHER, SELFPAY ==
--- NOTE | 2020-12-05 11:59 | DI.US.S_ITS ---
PROCEDURE: US PELVIC COMPLETE INDICATIONS: Pelvic Pressure/endometrial polyp TECHNIQUE: Real-time scanning was performed of the pelvic organs, with image documentation. Additional endovaginal scanning was necessary due to incomplete visualization of the adnexal and endometrial structures by transabdominal scanning. COMPARISON: [facility], US, US PELVIC COMPLETE, 11/04/2020, 10:56. FINDINGS: Uterus: Uterus is normal in size at 4.3 x 2.4 by 6.4 cm. Diffuse myometrial microcalcifications. The endometrium measures 4.4 mm in combined thickness. There are multiple polypoid masses visualized within the endometrial complex with the largest measuring up to 9 mm. Ovaries: Ovaries not identified. No adnexal masses. Other: No pathologic free abdominal or pelvic fluid. IMPRESSION: Multiple polypoid endometrial masses with the largest measuring up to 9 mm which may represent polyp; however differential would include both benign and malignant etiologies. Gynecologic consultation is recommended. Dictated by: Tone JORGE Interpreted: Bailee Beckett MD on 12/05/2020 at 14:09 Transcribed by: MARYBETH on 12/05/2020 at 14:12 Approved by: Bailee Beckett M.D. on 12/05/2020 at 17:08
== END ==
PROVIDERS: PCP Family Medicine; Referring Provider Obstetrics & Gynecology; Visit Provider Obstetrics & Gynecology
DX: R10.2 Pelvic and perineal pain (principal); N84.0 Polyp of corpus uteri
CPT/HCPCS: 76830; 76856

== ENCOUNTER → 2021-01-01 10:39 | Outpatient (CLI) | payer OTHER, SELFPAY ==
[2021-01-01 11:19] LABS: COVID19 -Nasal RAPID Negative (Negative)
== END ==
PROVIDERS: PCP Family Medicine; Visit Provider Obstetrics & Gynecology
DX: Z01.812 Encounter for preprocedural laboratory examination (principal); Z20.822 Contact with and (suspected) exposure to COVID-19
CPT/HCPCS: 87635

== ENCOUNTER 2021-01-01 12:14 | Day surgery (SDC) | payer OTHER, SELFPAY ==
[2020-12-26 15:05] VITALS: BMI 25.9
--- NOTE | 2021-01-01 | PATH_ITS ---
[facility] Accession Number: [id number] . 01 Material submitted: . endometrium - ENDOMETRIAL . 02 Diagnosis: Endometrial: Benign endometrial polyp with features of cystic atrophy; negative for for glandular hyperplasia, cytologic atypia, or malignancy. MRV 01/06/2021 1435 Local . 02 Electronically signed: . Shara Olivares MD, Pathologist NPI- [id number] . 01 Gross description: . ENDOMETRIAL: Received in formalin are minute fragments of mucoid and hemorrhagic material measuring 2.0 x 0.3 x 0.1 cm in aggregate. Submitted in toto in 1 cassette. /SHOAIB 01/02/2021 0703 Local . 02 Pathologist provided ICD-10: N84.0 . 02 CPT . 401120 Performed at: 01 [facility] [address] [id number] MD Cain Gomez MD Phone: [phone] Performed at: 02 [facility] [address] [place], [place] [id number] MD Zoe Hannah MD Phone: [phone]
[2021-01-01 13:14] VITALS: BP 125/65; PULSE 75; RESP 14; TEMP 36.6; O2SAT 100; BMI 25.7
[2021-01-01] MEDS: LACTATED RINGERS 1,000 ML 100 ML IV (13:32)
--- NOTE | 2021-01-01 13:35 | PM.PREOP ---
Pre-operative Note COVID-19 COVID-19 status: Negative Result date/Date tested (Pos, Neg/Pending): 01/01/21 Interval Note History & Physical reviewed/Exam performed by Physician: Yes Changes to H&P: No
--- NOTE | 2021-01-01 13:47 | SUR.OPER ---
Lithotomy on padded OR bed, head on pillow, arms secured on padded arm boards at <90 degrees abduction. Legs secured in padded yellow fins stirrups.
[2021-01-01 15:03] VITALS: BP 119/55; PULSE 67; RESP 16; O2SAT 97
[2021-01-01 15:08] VITALS: BP 126/57; PULSE 65; RESP 16; O2SAT 97
[2021-01-01 15:19] VITALS: BP 132/61; PULSE 66
--- NOTE | 2021-01-04 14:29 | PM.GYNOP.1 ---
Operative Date/Time/Diagnoses Date of procedure: 01/01/21 Time of procedure: 14:00 Pre-op diagnosis: endometrial polyp Post-op diagnosis: other (atrophic endometrium) Procedure & Clinicians Procedure: Procedures Operation Date: 01/01/21 13:30 Actual Procedures Side Surgeon p Hysteroscopy D&Major Khalil MD Indications: suspected endometrial polyp on imaging for pelvic organ prolapse Surgeon: Concha Khalil Anesthesia Type: MAC +/- Operative Notes Findings: Stenotic cervical os. Atrophic endometrium. Specimen(s): endometrial curettings Estimated blood loss (mL): 5 Procedure in detail: After informed consent was obtained, the patient was transferred to the operating room where IV sedation was obtained. She was prepped and draped in the dorsal lithotomy position in the usual sterile fashion, and the bladder was drained. A speculum was placed in the vagina and the cervix easily visualized. This was grasped on the posterior lip with a single-tooth tenaculum as the uterus was palpably retroverted. The patient had premedicated with vaginal Cytotec, and the cervix was easily dilated with gentle pressure to 6 mm with Hegar dilators. On initial dilation of the internal cervical os, approximately 3 cc of old, chocolaty brown liquid blood drained from the cervix with no visible tissue. No further bleeding was evident. A diagnostic hysteroscope was gently advanced through the cervix with gentle traction, the endometrial cavity was visualized. The patient had a copious amount of intrauterine mucus which complicated visualization somewhat, both ostia were able to be visualized along with the endometrial cavity. No polyps were visible. Visualization continued to be difficult despite multiple attempts to clear the endometrial cavity by flushing normal saline through the hysteroscope, but no discrete lesions were visualized. Hysteroscope was removed and a dilation and curettage was performed. The tenaculum was removed from the cervix with spontaneous hemostasis noted. The patient tolerated the procedure well and was taken to PACU in stable condition. IV fluids: 600 cc lactated Ringer's Fluid deficit: 150 cc of normal saline Complications: none Post-operative Condition: stable Disposition: PACU Plan for aftercare: Routine postoperative care.
== END 2021-01-01 15:39 | disposition home or self-care (01) ==
PROVIDERS: PCP Family Medicine; Referring Provider Obstetrics & Gynecology; Visit Provider Obstetrics & Gynecology
PROC: 0UDB8ZZ Extraction of Endometrium, Via Natural or Artificial Opening Endoscopic (ICD-10-PCS; CPT 58558; principal; 2021-01-01 13:30)
DX: N84.0 Polyp of corpus uteri (principal); I25.2 Old myocardial infarction; E78.5 Hyperlipidemia, unspecified; R56.9 Unspecified convulsions; Z20.822 Contact with and (suspected) exposure to COVID-19; Z01.812 Encounter for preprocedural laboratory examination
CPT/HCPCS: 58558; 82962; 87635; J1100; J2405; J2704; J3010

== ENCOUNTER → 2021-01-15 09:57 | Outpatient (ROUT) | payer OTHER, SELFPAY ==
[2021-01-15 10:39] LABS: BUN Creatinine Ratio 26.4 (6-22); Blood Urea Nitrogen 19 mg/dL (7-17); Calcium 9.1 mg/dL (8.4-10.2); Carbon Dioxide 32 mmol/L (22-32); Chloride 105 mmol/L (98-107); Estimated Glomerular Filt Rate > 60.0 mL/min (>60); Glucose 68 mg/dL (80-110); HEMOLYSIS < 15 (0-50); Potassium 4.2 mmol/L (3.4-5.1); Sodium 139 mmol/L (137-145)
== END ==
PROVIDERS: PCP Family Medicine; Visit Provider Family Medicine
DX: R10.32 Left lower quadrant pain (principal)
CPT/HCPCS: 80048

== ENCOUNTER → 2021-01-16 09:27 | Outpatient (CLI) | payer OTHER, SELFPAY ==
--- NOTE | 2021-01-16 09:28 | DI.CT.S_ITS ---
PROCEDURE: CT ABDOMEN PELVIS W CON INDICATIONS: Left lower quadrant pain TECHNIQUE: After the administration of oral and intravenous contrast, axial sections were acquired from the lung bases to the pubic symphysis. Coronal and sagittal reformats were performed. For radiation dose reduction, the following was used: automated exposure control, adjustment of mA and/or kV according to patient size. COMPARISON:None. FINDINGS: Image quality: Excellent. Lung bases: Unremarkable. Heart: No significant findings. ABDOMEN: Liver: Unremarkable. Gallbladder: Unremarkable. Biliary ducts: Unremarkable. Pancreas: Unremarkable. Spleen: Unremarkable. Adrenal Glands: Unremarkable. Kidneys and Ureters: Unremarkable. Stomach and Bowel: Extensive sigmoid diverticulosis without evidence of diverticulitis. No dilated bowel loops. No bowel wall thickening. No free air or free fluid. Peritoneum: No abnormal intraperitoneal fluid. No free air. Ventral Wall: No hernia. Abdominal Nodes: No retroperitoneal or mesenteric adenopathy by size criteria. Vessels: Aorta and inferior vena cava are normal in size. PELVIS: Pelvic Organs: Unremarkable. Bladder: Unremarkable. Pelvic Nodes: No enlarged lymph nodes. Miscellaneous: No inguinal hernias are seen. Bones: Lower lumbar laminectomy. Lumbar degenerative change. Canal stenosis at L3-L4. IMPRESSION: Extensive sigmoid diverticulosis without evidence of diverticulitis. Dictated by: Johnathan Grider M.D. on 01/16/2021 at 17:34 Approved by: Johnathan Grider M.D. on 01/16/2021 at 17:40
== END ==
PROVIDERS: PCP Family Medicine; Referring Provider Family Medicine; Visit Provider Family Medicine
DX: R10.32 Left lower quadrant pain (principal); K57.30 Diverticulosis of large intestine without perforation or abscess without bleeding
CPT/HCPCS: 74177; Q9967

== ENCOUNTER 2021-02-13 08:21 | Outpatient (RCR) | payer OTHER, SELFPAY ==
--- NOTE | 2021-02-13 17:41 | PT.OIE ---
Current Diagnoses Unspecified urinary incontinence (02/13/21) Past Medical History (Last Reviewed 02/09/21 @ 12:15 by Concha Khalil MD) Hyperlipidemia Myocardial infarction (08/02/19) Seizure Takotsubo cardiomyopathy Visit Care Team Role Provider Type Venkat Thomson MD Attending Provider Physician Primary Care Provider Referring Provider Specialty: Family Practice Address: [facility] [place], [address] Email: [email or web address] Initial Evaluation PT-OP-A Visit Information Start: 02/12/21 17:40 Freq: Status: Active Protocol: Document 02/13/21 08:12 LRN (Rec: 02/13/21 10:01 LRN [id number]) Out-Patient Physical Therapy Visit Information Visit Information Visit Type Initial Evaluation Visit Start Time 09:12 Visit Stop Time 09:55 Total Visit Minutes 40 Visit Number 1 Evaluation Information Evaluation Date 02/13/21 Precautions Precautions Lumbar deterioration due to scoliosis and compression 2002 benign tumor taken out of sacral area 12/2019 - steroid injection in lumbar spine for back pain. Seizures x 3 in big one in 2013, severe one in 2017. 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 PT-OP-B Current Condition Start: 02/12/21 17:40 Freq: Status: Active Protocol: Document 02/13/21 08:12 LRN (Rec: 02/13/21 10:01 LRN [id number]) Current Condition History of Current Condition Onset Date Aug 2020 Current Complaints Had bladder infections, no leakage. History of Current Condition Pt saw Dr.Kelly Turcios for bladder infections. Was thought she didn't have a prolapse, but was found later to have one. armor reconnaissance vehicle driver referred her to Dr. Khalil, then was referred to Urologist/ puttying and calking supervisor Cesar Aragon in [place], and found she had prolapse with thin vaginal skin and recommended a pessary . States she is getting better since getting a pessary. Has had some urinary leakage while running to phone or coughing hard. She has noticed some vaginal discharge but was told it was expected but to monitor. She was referred to do 1-2 sessions of physical therapy to strengthen the PF muscles and surgery not needed. She states it was thought the uterus may have prolapse, but is not. Prior Treatments and Tests Pessary in place Developmental History Developmental History 5 Parity 2 1 Miscarriage 2 Treatment Goals Patient/Caregiver Goals Pt goal is 1-2 visits to learn how to do Kegels better and any other ex's, but would do more therapy if needed. Pt has financial concerns due to high copay. Prior Functional Status Baseline Function- ADL's Independent Baseline Function- Mobility Independent Baseline Function- Recreation/Hobbies Hatha Yoga in home to strengthen core muscles. Current Functional Impairments (Reported) Functional Limitations- ADL's Minor leakage with cough or run. Functional Limitations- Recreation/ Stretches and walks. Hobbies Personal Factors Other Personal Factors That May Effect Lumbar deterioration due to Therapy/Recovery scoliosis and compression 2002 benign tumor taken out of sacral area 12/2019 - steroid injection in lumbar spine for back pain. Seizures x 3 in big one in 2013, severe one in 2016. 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 retroverted uterus PT-OP-C Subjective Start: 02/12/21 17:40 Freq: Status: Active Protocol: Document 02/13/21 08:12 LRN (Rec: 02/13/21 10:01 LRN [id number]) Patient Questionnaires Pelvic Pain and Urgency/Frequency Patient Symptom Scale Pelvic Pain Score 5 PT-OP-I Pelvic Floor Start: 02/12/21 17:40 Freq: Status: Active Protocol: Document 02/13/21 08:12 LRN (Rec: 02/13/21 10:01 LRN [id number]) Pelvic Floor Assessment Contraction Ability Manual Muscle Testing Left 2 Manual Muscle Testing Right 3 Manual Muscle Testing Anterior 3 Manual Muscle Testing Posterior 3 Muscle Endurance (Seconds) 10 Number of Quick Contractions In 10 5 Seconds Comments Pelvic Floor Comments Pt uses gluteals and abdominal muscles to perform a PF contraction. Pt breath holds with Kegels. PT-OP-J Posture/Palpation/Skin Start: 02/12/21 17:40 Freq: Status: Active Protocol: Document 02/13/21 08:12 LRN (Rec: 02/13/21 10:01 LRN [id number]) Posture Evaluation Position Standing Shoulder Posture Neutral Pelvis Posture Posterior Tilted Comments Posture Comments Decreased curvature of spine and forward bent at hips. PT-OP-K Range of Motion Start: 02/12/21 17:40 Freq: Status: Active Protocol: Document 02/13/21 08:12 LRN (Rec: 02/13/21 10:01 LRN [id number]) Lumbar Spine Range of Motion Lumbar Spine Active Degrees Testing Position Standing Flexion 80 Extension 15 Rotation Left 15 Rotation Right 25 Lateral Flexion Left 10 Lateral Flexion Right 10 Comments T11 - L5 scoliosis with apex at L3 & L5 Trunk flex is with 62 deg's hip flex Trunk ext is with 15 deg's hip ext Hip Goniometric Range of Motion Hip Right Passive Testing Position Supine Internal Rotation 45 External Rotation 60 Left Passive Testing Position Supine Internal Rotation 50 External Rotation 40 PT-OP-M Strength Start: 02/12/21 17:40 Freq: Status: Active Protocol: Document 02/13/21 08:12 LRN (Rec: 02/13/21 10:01 LRN [id number]) Trunk Strength Trunk Manual Muscle Testing Testing Position Supine Core Stabilization Pt not able to maintain core stability with MMT of LE's demonstrating rotational weakness. Pt breath holds with contraction of abdomen during MMT of LE's. Hip Strength Hip Manual Muscle Testing Right Flexion (L2) 3+ Fair+ Extension (S1) 4+ Good+ Abduction 3 Fair Adduction 3+ Fair+ External Rotation 4+ Good+ Internal Rotation 5 Normal Left Flexion (L2) 5 Normal Extension (S1) 3+ Fair+ Abduction 5 Normal Adduction 4+ Good+ External Rotation 5 Normal Internal Rotation 5 Normal PT-OP-Q Treatments Start: 02/12/21 17:40 Freq: Status: Active Protocol: Document 02/13/21 08:12 LRN (Rec: 02/13/21 10:01 LRN [id number]) Self-Care/Home Management Treatment Education Other Education Discussed results of evaluation, goals, and plan of care (POC). Pt agreeable to goals and POC for greater than 2 visits. Discussed proper PF contractions and reviewed her current method of PF contractions. Educated pt in PF anatomy with use of PF model. Activities Self-Care/Home Management Activities I/S pt in PF quick flick strengthening with facilitation of hip AD on R side due to weakness of R lateral wall with quick contractions. I/S pt to do 10 reps 2-3x/day. Instructed pt to continue TA/ PF ex's and will review for next session proper PF contractions. PT-OP-T Assessment and Plan Start: 02/12/21 17:40 Freq: Status: Active Protocol: Document 02/13/21 08:12 LRN (Rec: 02/13/21 10:01 LRN [id number]) Physical Therapy Assessment Rehab Potential Rehabilitation Potential Excellent Evaluation Complexity Number of Personal Factors/Comorbidities 3 or More Number of Body Systems Impaired 3 Clinical Presentation at Evaluation Stable Impairments Impairments Coordination,ROM,Strength Goals Three Impairment Pt lacks awareness of proper Kegel and breathing techniques for exercise Short Term Goal (STG) Pt will be able to demonstrate knowledge of proper breathing technique for daily activities and exercise to reduce stress on the pelvic floor. STG Duration 03/05/21 Retirement Goal (LTG) Improve pt awareness of performing a Kegel exercise in isolation of abdominal and gluteal muscles. LTG Duration 03/30/21 Two Impairment Asymmetry of hip mobility Short Term Goal (STG) Pt will be independent in a HEP of hip mobility ex's. STG Duration 02/20/21 One Impairment Lacks appropriate self care of PF Short Term Goal (STG) Pt will be educated in proper genital hygiene and vulvar care. STG Duration 02/20/21 Retirement Goal (LTG) Pt will be independent in a self care HEP of PF exercises. LTG Duration 03/30/21 Assessment Summary Assessment Pt presents with PF weakness on the R lateral wall (6-9 of PF clock). She has thin and fragile external and internal PF soft tissues. She has asymmetry of hip mobility, probably due to scoliosis of lumbar spine and asymmetry of hip positioning. She has weakness of core rotators and appears to have been breath holding during her home core strengthening program that was probably contributing to increased downward pressure on her PF. Education in proper breathing with exercise will help to prevent excessive downward stress on her PF and abdominal organs. Although she appears to have good PF endurance of her deep PF muscles, she shows no clit nod on performing a PF contraction. She has good quick flick strength with as previously stated weakness of her R lateral wall. The pt will benefit from skilled physical therapy to promote proper PF contractions with training for proper breathing no only with PF ex's but general exercises (including her planned return to yoga). The pt will benefit from hip mobility ex's and strengthening of her hips and rotational component for her core. The pt may require more than 2 visits to get her independent and safe with her HEP and the pt is agreeable. The pt will be progressed as quickly as appropriate onto a self care HEP to achieve the above stated goals. Physical Therapy Plan Frequency and Duration Frequency of Treatment 1-2x/week Plan of Care Start Date 02/13/21 Plan of Care End Date 03/30/21 Therapeutic Interventions Therapeutic Interventions Home Exercise Program,Patient/ Caregiver Education,Self-Care/ Home Management,Therapeutic Activities,Therapeutic Exercises Next Visit Focus/Plan Next Note Type Treatment Note Next Visit Plan Review PF quick flicks with hip AD, and review change in mechanics of breathing out with compression of abdominal canister. Educate and train pt in repetitions & timing of ex's, proper breathing with exercise , and proper genital hygiene and vulvar care. Discuss possible use of natural lubricant for moisture care. HEP of Strengthening of R lateral wall of PF. Focus HEP due to copay and her financial concerns.
--- NOTE | 2021-04-02 09:41 | PT.OPDS ---
Current Diagnoses Unspecified urinary incontinence (02/13/21) Visit Care Team Role Provider Type Venkat Thomson MD Attending Provider Physician Primary Care Provider Referring Provider Specialty: [facility] Address: [address], [place], [address] Email: [email or web address] Visit Number Visit Number 1 Discharge Summary PT-OP-B Current Condition Start: 02/12/21 17:40 Freq: Status: Active Protocol: Document 02/13/21 08:12 LRN (Rec: 02/13/21 10:01 LRN [id number]) Current Condition History of Current Condition Onset Date Aug 2020 Current Complaints Had bladder infections, no leakage. History of Current Condition Pt saw Dr.Kelly Turcios for bladder infections. Was thought she didn't have a prolapse, but was found later to have one. rodent exterminator referred her to Dr. Khalil, then was referred to Urologist/ converting technician Cesar Aragon in [place], and found she had prolapse with thin vaginal skin and recommended a pessary . States she is getting better since getting a pessary. Has had some urinary leakage while running to phone or coughing hard. She has noticed some vaginal discharge but was told it was expected but to monitor. She was referred to do 1-2 sessions of physical therapy to strengthen the PF muscles and surgery not needed. She states it was thought the uterus may have prolapse, but is not. Prior Treatments and Tests Pessary in place Developmental History Developmental History 5 Parity 2 1 Miscarriage 2 Treatment Goals Patient/Caregiver Goals Pt goal is 1-2 visits to learn how to do Kegels better and any other ex's, but would do more therapy if needed. Pt has financial concerns due to high copay. Prior Functional Status Baseline Function- ADL's Independent Baseline Function- Mobility Independent Baseline Function- Recreation/Hobbies Hatha Yoga in home to strengthen core muscles. Current Functional Impairments (Reported) Functional Limitations- ADL's Minor leakage with cough or run. Functional Limitations- Recreation/ Stretches and walks. Hobbies Personal Factors Other Personal Factors That May Effect Lumbar deterioration due to Therapy/Recovery scoliosis and compression 2002 benign tumor taken out of sacral area 12/2019 - steroid injection in lumbar spine for back pain. Seizures x 3 in big one in 2013, severe one in 2016. 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 retroverted uterus PT-OP-C Subjective Start: 02/12/21 17:40 Freq: Status: Active Protocol: Document 02/13/21 08:12 LRN (Rec: 02/13/21 10:01 LRN [id number]) Patient Questionnaires Pelvic Pain and Urgency/Frequency Patient Symptom Scale Pelvic Pain Score 5 PT-OP-I Pelvic Floor Start: 02/12/21 17:40 Freq: Status: Active Protocol: Document 02/13/21 08:12 LRN (Rec: 02/13/21 10:01 LRN [id number]) Pelvic Floor Assessment Contraction Ability Manual Muscle Testing Left 2 Manual Muscle Testing Right 3 Manual Muscle Testing Anterior 3 Manual Muscle Testing Posterior 3 Muscle Endurance (Seconds) 10 Number of Quick Contractions In 10 5 Seconds Comments Pelvic Floor Comments Pt uses gluteals and abdominal muscles to perform a PF contraction. Pt breath holds with Kegels. PT-OP-J Posture/Palpation/Skin Start: 02/12/21 17:40 Freq: Status: Active Protocol: Document 02/13/21 08:12 LRN (Rec: 02/13/21 10:01 LRN [id number]) Posture Evaluation Position Standing Shoulder Posture Neutral Pelvis Posture Posterior Tilted Comments Posture Comments Decreased curvature of spine and forward bent at hips. PT-OP-K Range of Motion Start: 02/12/21 17:40 Freq: Status: Active Protocol: Document 02/13/21 08:12 LRN (Rec: 02/13/21 10:01 LRN [id number]) Lumbar Spine Range of Motion Lumbar Spine Active Degrees Testing Position Standing Flexion 80 Extension 15 Rotation Left 15 Rotation Right 25 Lateral Flexion Left 10 Lateral Flexion Right 10 Comments T11 - L5 scoliosis with apex at L3 & L5 Trunk flex is with 62 deg's hip flex Trunk ext is with 15 deg's hip ext Hip Goniometric Range of Motion Hip Right Passive Testing Position Supine Internal Rotation 45 External Rotation 60 Left Passive Testing Position Supine Internal Rotation 50 External Rotation 40 PT-OP-M Strength Start: 02/12/21 17:40 Freq: Status: Active Protocol: Document 02/13/21 08:12 LRN (Rec: 02/13/21 10:01 LRN [id number]) Trunk Strength Trunk Manual Muscle Testing Testing Position Supine Core Stabilization Pt not able to maintain core stability with MMT of LE's demonstrating rotational weakness. Pt breath holds with contraction of abdomen during MMT of LE's. Hip Strength Hip Manual Muscle Testing Right Flexion (L2) 3+ Fair+ Extension (S1) 4+ Good+ Abduction 3 Fair Adduction 3+ Fair+ External Rotation 4+ Good+ Internal Rotation 5 Normal Left Flexion (L2) 5 Normal Extension (S1) 3+ Fair+ Abduction 5 Normal Adduction 4+ Good+ External Rotation 5 Normal Internal Rotation 5 Normal PT-OP-T Assessment and Plan Start: 02/12/21 17:40 Freq: Status: Active Protocol: Document 04/02/21 09:37 LRN (Rec: 04/02/21 09:40 LRN [id number]) Physical Therapy Assessment Goals Three Impairment Pt lacks awareness of proper Kegel and breathing techniques for exercise Short Term Goal (STG) Pt will be able to demonstrate knowledge of proper breathing technique for daily activities and exercise to reduce stress on the pelvic floor. STG Duration 03/05/21 (04/02/21: NOT MET, due to early DC) Longterm Goal (LTG) Improve pt awareness of performing a Kegel exercise in isolation of abdominal and gluteal muscles. LTG Duration 03/30/21 (04/02/21: NOT MET, due to early DC) Two Impairment Asymmetry of hip mobility Short Term Goal (STG) Pt will be independent in a HEP of hip mobility ex's. STG Duration 02/20/21 (04/02/21: NOT MET, due to early DC) One Impairment Lacks appropriate self care of PF Short Term Goal (STG) Pt will be educated in proper genital hygiene and vulvar care. STG Duration 02/20/21 (04/02/21: NOT MET, due to early DC) Hotel Front Office Manager Goal (LTG) Pt will be independent in a self care HEP of PF exercises. LTG Duration 03/30/21 (04/02/21: Partially met goal) Assessment Summary Assessment Pt was seen for her initial evaluation on 02/13/21. Message received from pt on 02/23/21 that due to health issues with spouse, pt is not sure when she can return to therapy ; therefore requested discharge. She reported she was doing well with exercises/ cream. Physical Therapy Plan Discharge Physical Therapy Discharge Reasons Patient Request Discharge Comments Thank you for your referral.
== END 2021-04-02 12:58 | disposition home or self-care (01) ==
LOC: PHYS 08:21
PROVIDERS: PCP Family Medicine; Referring Provider Family Medicine; Visit Provider Family Medicine
DX: R32 Unspecified urinary incontinence (principal)
CPT/HCPCS: 97161; 97535

== ENCOUNTER → 2021-02-15 10:35 | Outpatient (CLI) | payer OTHER, SELFPAY | PROVIDERS: PCP Family Medicine; Visit Provider Student in an Organized Health Care Education/Training Program | DX: N39.41 Urge incontinence (principal); R30.0 Dysuria | CPT/HCPCS: 87077; 87086; 87186 ==

== ENCOUNTER → 2021-06-15 07:43 | Outpatient (CLI) | payer OTHER, SELFPAY ==
--- NOTE | 2021-06-15 | DI.ECHO.S_ITS ---
[facility] +---------+ : : [address] : : : : [id number] : : : : Phone: [phone]+ Echocardiogram Report + + :Name: YONI JENNINGS Study Date: 06/15/2021 Height: 64 in : :[facility] ReadingLocation: Weight: 150 lb : : Gender: Female BSA: 1.7 m2 : :: 1935 Age: 85 yrs BP: 134/70 mmHg: :Reason For Study: TAKOTSUBO SYNDROM : :Ordering Physician: MARK, : :DENI Performed By: Luz Malone : :Referring: DENI FLORES : + + Interpretation Summary 1) Normal left ventricular thickness, size, wall motion, and systolic function (EF 65-70%). 2) Normal right ventricular size and function. 3) No significant valvular abnormalities. 4) No prior Echo available for comparison. Procedure: A two-dimensional transthoracic echocardiogram with color flow and Doppler was performed. The study quality was technically adequate. There is no prior echocardiogram noted for this patient. The patient was in sinus rhythm with heart rates between 56-65 bpm during the exam. Left Ventricle: The left ventricle is normal in size and wall thickness. The ejection fraction is estimated to be 65-70%. Left ventricular systolic function appears normal without focal wall motion abnormalities. Right Ventricle: The right ventricle is normal in size and function. Atria: Both atria are normal in size. There is no Doppler evidence for an interatrial shunt. Mitral Valve: The mitral valve is normal in structure and function. There is no mitral regurgitation noted. Aortic Valve: The aortic valve is trileaflet. The aortic valve opens well. There is no aortic valve stenosis. No aortic regurgitation is present. Tricuspid Valve: The tricuspid valve is normal in structure and function. There is mild tricuspid regurgitation. The right ventricular systolic pressure is estimated to be at least 28 mmHg based on an estimated right atrial pressure of 3 mm Hg. Pulmonic Valve: The pulmonic valve leaflets are thin and pliable; valve motion is normal. There is mild to moderate pulmonic regurgitation. Great Vessels: The aortic root is normal size. The dimensions of the ascending aorta are normal. The IVC is of normal diameter and collapses greater than 50% with a sniff. This suggests a low right atrial pressure of 3 mm Hg. Pericardium/ Pleura There is no pericardial effusion. There is no pleural effusion. MMode/2D Measurements & Calculations LVIDd: 3.8 cm LVOT diam: 2.0 cm LVIDs: 2.6 cm Ao root diam: 3.0 cm FS: 30.7 % asc Aorta Diam: 2.7 cm IVSd: 0.87 cm LVPWd: 0.89 cm LV marie. diameter/BSA (cm/m^2): 2.2 LV sys. diameter/BSA (cm/m^2): 1.5 LA A2 area: 18.0 cm2 RA long axis: 4.4 cm LA A4 area: 12.6 cm2 RA area: 10.5 cm2 LA length (vol): 4.1 cm RA vol: 21.1 ml LA vol: 47.2 ml RA : 12.2 ml/m2 LA vol index: 27.3 ml/m2 IVC diam: 1.3 cm RVD1 (basal): 3.2 cm TAPSE: 2.2 cm Doppler Measurements & Calculations Ao V2 max: 131.1 cm/sec LVOT Max Sav: 127.8 cm/sec Ao V2 mean: 96.0 cm/sec LV V1 max P.5 mmHg Ao max P.9 mmHg LV V1 VTI: 27.8 cm Ao mean P.0 mmHg SHOAIB(I,D): 2.9 cm2 Ao V2 VTI: 29.2 cm SHOAIB(V,D): 3.0 cm2 sev ratio: 0.95 SHOAIB indexed to BSA (cm^2/m^2): 1.7 MV E max sav: 82.6 cm/sec TR max sav: 248.1 cm/sec MV A max sav: 99.6 cm/sec TR max P.6 mmHg MV E/A: 0.83 PA V2 max: 99.5 cm/sec Med Peak E' Sav: 5.3 cm/sec PA V2 mean: 60.6 cm/sec E/E' med: 15.7 PA mean P.7 mmHg Lat Peak E' Sav: 7.2 cm/sec PA pr(Accel): 39.6 mmHg E/E' lat: 11.5 E/e' average: 13.6 MV dec time: 0.22 sec SV(LVOT): 84.8 ml Reading Physician:11:30 AM
== END ==
PROVIDERS: Family Provider Family Medicine; PCP Family Medicine; Referring Provider Family Medicine; Visit Provider Family Medicine
DX: I07.1 Rheumatic tricuspid insufficiency (principal); I37.1 Nonrheumatic pulmonary valve insufficiency; I51.81 Takotsubo syndrome
CPT/HCPCS: 93306

== ENCOUNTER 2021-07-24 13:36 | Emergency (ER) | payer OTHER, SELFPAY ==
[2021-07-24 13:40] VITALS: BP 146/67; PULSE 63; RESP 14; TEMP 36.8; O2SAT 98; BMI 26.5
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
[2021-07-24 15:55] VITALS: BP 144/64; PULSE 60; O2SAT 97
== END 2021-07-24 15:55 | disposition home or self-care (01) ==
PROVIDERS: Emergency Provider Physician Assistant; Family Provider Family Medicine; PCP Family Medicine
DX: S20.219A Contusion of unspecified front wall of thorax, initial encounter (principal); V49.50XA Passenger injured in collision with unspecified motor vehicles in traffic accident, initial encounter
CPT/HCPCS: 71046; 99283

== ENCOUNTER → 2021-07-27 16:17 | Outpatient (CLI) | payer OTHER, SELFPAY ==
--- NOTE | 2021-07-27 16:20 | DI.RAD.S_ITS ---
PROCEDURE: XR CERVICAL SPINE 2V OR 3V INDICATIONS: NECK AND THORACIC BACK PAIN TECHNIQUE: 3 view(s) of the cervical spine were acquired. COMPARISON: [facility], , XR THORACIC SPINE 3V, 07/27/2021, 16:18. FINDINGS: Bones: No fractures or dislocations to the T1 level. The lateral masses of C1 appear intact on the odontoid view. No suspicious bony lesions. Grade 1 retrolisthesis C5-C6 where there is moderate to severe disc degeneration. Mild multilevel mid and lower cervical spine facet joint arthropathy and uncovertebral hypertrophy Soft tissues: No prevertebral soft tissue swelling. IMPRESSION: Multilevel spondylosis, most notably with moderate to severe disc degeneration at the C5-C6 level. Dictated by: Tone JORGE Interpreted: Regan Myers MD on 07/27/2021 at 16:46 Transcribed by: RADHA on 07/27/2021 at 16:47 Approved by: Regan Myers M.D. on 07/27/2021 at 16:57
--- NOTE | 2021-07-27 16:20 | DI.RAD.S_ITS ---
PROCEDURE: XR THORACIC SPINE 3V INDICATIONS: NECK AND THORACIC BACK PAIN TECHNIQUE: 3 views of the thoracic spine were acquired. COMPARISON: None. FINDINGS: Bones: No acute, displaced fracture retropulsion. No suspicious bony lesions. 12 pairs of ribs are noted, and appear intact where visualized. Trace dextrocurvature centered at the midthoracic level. Multilevel disc degeneration. Soft tissues: No paravertebral stripe thickening. IMPRESSION: Trace dextrocurvature and multilevel disc degeneration, most notably involving the inferior cervical spine. Dictated by: Tone Sorensen [facility] Interpreted: Regan Myers MD on 07/27/2021 at 16:44 Transcribed by: RADHA on 07/27/2021 at 16:45 Approved by: Regan Myers M.D. on 07/27/2021 at 16:57
== END ==
PROVIDERS: Family Provider Family Medicine; PCP Family Medicine; Referring Provider Family Medicine; Visit Provider Family Medicine
DX: M47.812 Spondylosis without myelopathy or radiculopathy, cervical region (principal); M50.322 Other cervical disc degeneration at C5-C6 level; M51.34 Other intervertebral disc degeneration, thoracic region
CPT/HCPCS: 72040; 72072

== ENCOUNTER → 2021-12-30 08:32 | Outpatient (CLI) | payer OTHER, SELFPAY ==
[2021-12-30 09:35] LABS: Appearance Urine UA CLEAR; Bilirubin Urine UA NEGATIVE (NEGATIVE); Color Urine UA YELLOW; Glucose Urine UA NEGATIVE (Negative); Ketones Urine UA NEGATIVE (NEGATIVE); Leukocyte Esterase Urine UA TRACE (NEGATIVE); Nitrite Urine UA NEGATIVE (Negative); Occult Blood Urine UA NEGATIVE (Negative); Protein Urine UA NEGATIVE (Negative); Urobilinogen Urine UA 0.2 E.U./dL (0.2)
[2021-12-30 10:14] LABS: RBC Urine None Seen (0-5/HPF)
[2021-12-30 10:15] LABS: Bacteria Urine Occasional (0-1); Culture Indicated Urine Specimen Cultured; Squamous Epithelial Cell Urine 0-1 /HPF (0-5/HPF); WBC Urine 1-5/HPF (0-5/HPF)
== END ==
PROVIDERS: Family Provider Family Medicine; PCP Family Medicine; Referring Provider Family Medicine; Visit Provider Family Medicine
DX: N81.9 Female genital prolapse, unspecified (principal); R35.0 Frequency of micturition; Z87.440 Personal history of urinary (tract) infections
CPT/HCPCS: 81001; 87077; 87086; 87185; 87186

== ENCOUNTER → 2022-01-06 15:33 | Outpatient (CLI) | payer OTHER, SELFPAY ==
[2022-01-06 16:20] LABS: COVID19 -Nasal RAPID Negative (Negative)
== END ==
PROVIDERS: Family Provider Family Medicine; PCP Family Medicine; Visit Provider Obstetrics & Gynecology
DX: Z01.812 Encounter for preprocedural laboratory examination (principal); Z20.822 Contact with and (suspected) exposure to COVID-19
CPT/HCPCS: 87635; C9803

== ENCOUNTER 2022-01-07 06:21 | Day surgery (SDC) | payer OTHER, SELFPAY ==
[2022-01-04 14:44] VITALS: BMI 26.5
[2022-01-07] VITALS (11 sets, daily range): BP systolic 94–124; BP diastolic 50–75; PULSE 64–83; RESP 14–29; TEMP 36.3–36.6; O2SAT 95–98; BMI 26.5
--- NOTE | 2022-01-07 | PATH_ITS ---
[facility] Accession Number: [id number] . 01 Material submitted: . uterus - UTERUS, TUBES, AND OVARIES . 01 Diagnosis: Uterus, Fallopian Tubes and Ovaries, Hysterctomy and Bilateral Salingo-oophorectomy: Cervix: Focal chronic cervicitis and multiple nabothian cysts. Endometrium: Atrophic. Myometrium: Focal adenomyosis and single small subserosal leiomyoma. Ovaries: Postmenopausal atrophy. Fallopian tubes: Postmenopausal stromal fibrosis and atrophy. [facility] 01/11/2022 1639 Local . 01 Electronically signed: . Allegra Huang MD, Pathologist NPI- [id number] . 01 Gross description: . Received in formalin labeled with the patient's name and uterus, tubes, and ovaries consists of a 52-gram intact uterus (7.9 cm SI, 5.1 cm ML, and 3.2 cm AP), with attached cervix (3.9 x 2.9 cm), attached right fallopian tube (4.7 x 0.8 cm), attached right ovary (2.6 x 1.7 x 0.7 cm), attached left fallopian tube (5.5 x 0.8 cm), attached left ovary (2.6 x 1.4 x 0.5 cm). The uterine serosa is esqueda, congested, and glistening with multiple small white areas of adhesion measuring up to 0.4 cm in greatest dimension, and no hemorrhage is identified. The ectocervix is esqueda, smooth, and glistening, and the os is circular and patent, and measures 0.4 cm in greatest dimension. The anterior parametrial margin is inked blue while the posterior parametrial margin is inked black. The serosal reflections are relatively distorted anteriorly. The endocervical canal has esqueda herringbone mucosa and measures 4.0 cm in length. The endometrium is red and velvety (2.2 cm from cornu to cornu, 2.2 cm in length) and averages 0.2 cm thick. The myometrium measures 1.2 cm in maximum thickness and has multiple esqueda roughened circular areas possibly consistent with vascular sclerosis. A white well-circumscribed nodule is identified near the serosa measuring 0.5 cm in greatest dimension with no hemorrhage or necrosis. . The right fallopian tube has smooth violaceous serosa with small cystic structures measuring up to 0.1 cm in greatest dimension. Sections reveals an unremarkable stellate lumen. . The right ovary is congested and cerebriform, and sectioning reveals a congested cut surface with possible normal architecture. The left fallopian tube has smooth congested serosa with no identifiable cystic structures, and sectioning reveals an unremarkable stellate lumen. . The left ovary has congested cerebriform external surface and sectioning reveals possibly normal congested architecture. Chaperon sections are submitted as follows: . A1: Anterior cervix. A2: Anterior full-thickness section. A3: Posterior cervix. A4: Full-thickness posterior section. A5: Right tube to include entire fimbriae and cross-sections. A6: Chaperon right ovary. A7: Left tube to include entire fimbriae and cross-sections. A8: Chaperon left ovary. (([id number]) /MRV 01/08/2022 1734 Local . 01 Pathologist provided ICD-10: N81.10, N81.4, N81.6 . 01 CPT . 405191 Specimen Comment: A courtesy copy of this report has been sent to [phone] Performed at: 01 [facility] [address] [place] [address] [address], [place], [place] [id number] MD Cain Gomez MD Phone: [phone]
[2022-01-07] MEDS: LACTATED RINGERS 1,000 ML 100 ML IV ×2 (07:20→15:21)
[2022-01-07 07:26] LABS: Add Manual Diff / Slide Review NO; Basophils Absolute Auto 0 /uL (0-100); Basophils Percent Auto 0.9 % (0-2); Eosinophils Absolute Auto 100 /uL (0-450); Eosinophils Percent Auto 2.2 % (2-4); Hematocrit 36.2 % (36-46); Hemoglobin 12.4 g/dL (12.0-16.0); Lymphocytes Absolute Auto 1300 /uL (1100-4500); Lymphocytes Percent Auto 26.9 % (25-40); Mean Corpuscular HGB Conc 34.3 % (30-36); Mean Corpuscular Volume 93.4 fL (80-100); Monocytes Absolute Auto 400 /uL (0-900); Monocytes Percent Auto 8.4 % (3-14); Neutrophils Absolute Auto 3100 /uL (1500-7000); Neutrophils Percent Auto 61.6 % (50-75); Platelet Count 157 X10^3/uL (150-400); Red Blood Cell Count 3.88 X10^6/uL (4.0-5.2); Red Cell Distribution Width 13.1 % (11.6-14.8)
[2022-01-07 07:38] LABS: BUN Creatinine Ratio 23.6 (6-22); Blood Urea Nitrogen 17 mg/dL (7-17); Calcium 8.6 mg/dL (8.4-10.2); Carbon Dioxide 33 mmol/L (22-32); Chloride 99 mmol/L (98-107); Estimated Glomerular Filt Rate > 60 mL/min (>60); Glucose 86 mg/dL (80-110); HEMOLYSIS < 15 (0-50); Potassium 4.4 mmol/L (3.4-5.1); Sodium 134 mmol/L (137-145)
--- NOTE | 2022-01-07 08:48 | PM.PREOP ---
Pre-operative Note COVID-19 COVID-19 status: Negative Result date/Date tested (Pos, Neg/Pending): 01/06/22 Criteria for continued procedure: Non-surgical alternatives not available or appropriate per current SOC Interval Note History & Physical reviewed/Exam performed by Physician: Yes Changes to H&P: No H&P completed within 30 days and has changed as indicated here:: 12/31/21
[2022-01-07] MEDS: CEFAZOLIN 2 GM/20 ML SYRINGE IV (09:13)
--- NOTE | 2022-01-07 09:45 | SUR.OPER ---
Lithotomy on padded OR bed. [place] Pad Positioner under torso. Head on pillow, arms padded and tucked at sides. Legs secured in padded yellow fins stirrups.
[2022-01-07] MEDS: BUPIVACAINE 0.5% (PF) 30 ML, EPINEPHrine 0.15 MG INJ (10:06)
[2022-01-07] MEDS: ACETAMINOPHEN IV 1,000 MG/100 ML VIAL 400 MG IV (10:21)
--- NOTE | 2022-01-07 11:14 | PM.GYNOP.1 ---
Operative Date/Time/Diagnoses Date of procedure: 01/07/22 Time of procedure: 11:14 Pre-op diagnosis: Uterine prolapse Cystocele and Rectocele Post-op diagnosis: same Procedure & Clinicians Procedure: Procedures Operation Date: 01/07/22 09:00 Actual Procedure Side Surgeon p Laparoscopic Assisted Vag Hysterectomy Evy Goddard MD s Laparoscopic Oophorectomy Salpingoophorectomy w/ Anterior- Posterior Repair Bilateral Evy Goddard MD Indications: Uterine prolapse Cystocele with rectocele Surgeon: Evy Goddard Color Technician: Shelby Carrington Anesthesia Type: General and Local Operative Notes Findings: Third-degree uterine prolapse Third-degree cystocele Third-degree rectocele Normal liver and gallbladder Normal tubes and ovaries Normal appendix Closure Type: primary Specimen(s): left tube & ovary, right tube & ovary and uterus Applied: catheter (To continuous drainage) and other (Vaginal packing in place) Estimated blood loss (mL): 100 Blood products transfused: none Procedure in detail: The patient was taken to the operating room where she was placed in the dorsal supine position. After adequate general endotracheal anesthesia was achieved, she was placed in the dorsal lithotomy position, and prepped and draped in the usual sterile fashion. A bivalve speculum was placed into the vagina, and a single-tooth tenaculum was placed on the anterior lip of the cervix. The cervical os was sequentially dilated until the ZUMI uterine manipulator could pass easily into the endometrial cavity. The single-tooth tenaculum was removed from the anterior lip of the cervix, and the bivalve speculum was removed from the vagina. Attention was then turned to the abdomen where 6 mL of quarter percent Marcaine with epinephrine were injected in the umbilical fold. A 5 mm incision was made. The Verees needle was placed into the peritoneal cavity, and its placement confirmed by aspiration and drop test. The abdominal cavity was insufflated with 4 L of CO2. The Verees needle was removed, and a 5 mm trocar was placed without difficulty. Initial inspection of the pelvis/abdomen revealed the findings noted above. Two other incisions were made 4 cm lateral to the midline at the level of the umbilicus. These were 5 mm incisions. Two 5 mm trocars were placed under direct visualization. The right tube and ovary were grasped with an atraumatic grasper. The infundibulopelvic ligament on the right side was cauterized and cut with the Powerseal. The round ligament and broad ligament were cauterized and cut. This was continued to the level of the uterine arteries. This was repeated on the patient's left side. The instruments were removed from the abdomen. The trocars and instruments were covered with sterile towels. Attention was then turned to the vagina where the ZUMI uterine manipulator was removed from the uterus. The cervix was grasped with a 4 tooth tenaculum. 10 mL of quarter percent Marcaine with epinephrine were injected circumferentially around the cervix. The cervix was circumscribed with a #10 blade. The bladder and rectum were dissected off the lower uterine segment and cervix with an open moistened Ray-Maria De Jesus. The peritoneum was entered sharply with the Metzenbaum scissors anteriorly and a Papito placed. The peritoneum was entered posteriorly with the Metzenbaum scissors and the long weighted speculum was placed into the posterior cul-de-sac. The uterosacral cardinal ligament complexes were clamped, transected, and suture ligated with 0 Vicryl. These were attached to hemostat. The uterine arteries were clamped, transected, and suture ligated with 0 Vicryl. The uterus was handed off for specimen with the tubes and ovaries. The vaginal cuff was closed with 0 Vicryl with a series of simple interrupted sutures. The tagged sutures were cut. 2 Allis clamps were placed at the apex of the cystocele. 6 mL of quarter percent Marcaine with epinephrine were injected and an incision was made with a #10 blade between the 2 Allis clamps. Wide Allis clamps were placed on the midline of the cystocele approximately 5. The mucosa was undermined using the Metzenbaum scissors and the mucosa incised in the midline moving the wide Allis clamps to the edges of the mucosa. The mucosa was dissected off the underlying fascia using an open moistened Ray-Maria De Jesus and a #10 blade. The fascia was reapproximated with 0 Vicryl with a series of horizontal mattress sutures. The excess vaginal mucosa was excised. The mucosa was closed using simple interrupted sutures with 2-0 Vicryl including the underlying fascia to close the space. The weighted speculum was removed from the vagina. Allis clamps were placed at the mucocutaneous junction at the introitus. 6 mL of quarter percent Marcaine with epinephrine were injected. An incision was made with a #10 blade between the 2 Allis clamps, and a triangular piece of skin and underlying subcutaneous tissue was removed. Allis clamps were placed in the midline of the rectocele. 10 mL of quarter percent Marcaine with epinephrine were injected submucosally. The mucosa was undermined using the Metzenbaum scissors and the mucosa incised in the midline, moving the wide Allis clamps to the mucosal edges. The underlying fascia was dissected off of th mucosa using an open moistened Ray-Maria De Jesus and a #10 blade. The fascia was reapproximated using 0 Vicryl with a series of horizontal mattress sutures. The excess vaginal mucosa was excised. The mucosa was closed using a series of simple interrupted sutures with 2-0 Vicryl including the underlying fascia to close the space. On the perineum 0 Vicryl was used to reapproximate the levator muscle. The subcutaneous layer was closed with 2-0 Vicryl. The skin was closed with 3-0 chromic in a subcuticular fashion. Hemostasis was achieved. A Betadine moistened vaginal pack was placed into the vagina. A rectal exam was done and there were no sutures palpable in the rectum. The urine was clear. Gloves were changed. The abdomen was re-insufflated with 3 L of CO2. The pelvis was inspected and there was no bleeding noted. The instruments were removed from the abdomen. The CO2 was allowed to escape. The incisions were closed with 4-0 Monocryl in a subcuticular fashion. Steri-Strips and Allevyn dressings were placed. Sponge, lap, and instrument counts were correct x-2. The patient tolerated the procedure well, was taken to PACU in stable condition. Complications: none Post-operative Condition: stable Disposition: PACU Plan for aftercare: To Acute Care after Recovery
--- NOTE | 2022-01-07 19:28 | PC.NURSE ---
PT ARRIVAL TO ROOM 227, VSS, HAS DENIED PAIN REPORTS ONLY DISCOMFORT AND DENIED ANY PO RX - UNGER PATENT WITH CLEAR PALE URINE- 3 BAND-AID DRESSINGS TO ABD- CDI, + BT X 4 QUADS AND TOLERATING DIET WELL - ADVANCED DIET TO GENERAL AND TOLERATING WELL - IVF IS LR @ 100CC/H
[2022-01-07] MEDS: DOCUSATE 100 MG CAPSULE 200 MG PO (20:49)
[2022-01-08 00:15] VITALS: BP 112/56; PULSE 74; RESP 16; TEMP 36.4; O2SAT 97
[2022-01-08] MEDS: LACTATED RINGERS 1,000 ML 100 ML IV (00:32)
[2022-01-08] MEDS: ALPRAZolam 0.25 MG TABLET PO (00:49)
[2022-01-08 03:30] VITALS: BP 133/61; PULSE 66; RESP 16; TEMP 36.7; O2SAT 97
[2022-01-08] MEDS: ACETAMINOPHEN 325 MG TABLET 650 MG PO (03:42)
[2022-01-08 09:08] VITALS: BP 123/57; PULSE 70; RESP 18; TEMP 37.1; O2SAT 98
[2022-01-08] MEDS: METOPROLOL ER 25 MG TABLET 12.5 MG PO (09:52)
--- NOTE | 2022-01-08 13:07 | CM.DANOTE ---
ROBBIEP Note: Payor: [place] PCP: MD Arianne DCP met with patient today prior to her discharge. Pt states that she lives with her Spouse, Aristeo, in a house. Pt states that she is independent at baseline and still drives POV. Pt declines any usage of walker or cane. Pt declines any need at this time. P: Per MD, pt is medically stable for discharge today. Pt is to discharge home via friend POV Discharge Planning/Care Management Advanced directive, confirm from FAMILY Start: 01/07/22 15:15 Freq: Q24H Status: Complete Protocol: Document 01/07/22 15:15 TJB (Rec: 01/07/22 15:35 TJB [id number]) Advance Directive, confirm on record Time 15:34 Person contacted medical records Copy received Yes CM Discharge Assessment Start: 01/08/22 13:04 Freq: Status: Active Protocol: Document 01/08/22 13:05 JERRY (Rec: 01/08/22 13:05 AJ [id number]) Discharge Planning Assessment Assigned Director Of Learning Savana Daniel RN/MUSA Advance Directives? Yes Advance Directives on File No History Provided By Patient,Medical Record Prior Living Arrangements House Household Members spouse Type of transporation used prior to Drives own vehicle admit Independent with ADL's Yes Is patient alert and oriented? Yes Caregiver for Another No Barriers to Discharge No Discharge Plan Home Referrals Initiated None needed Whiteboard Updated in Patient Room with Yes name and ext. # of Director Of Learning Review Status In Process Please Provide Date Initial DC 01/08/22 Assessment Was Performed Next Review Type Continued Stay Review Pre-Anesthesia Assessment Start: 01/04/22 14:44 Freq: Status: Complete Protocol: Document 01/04/22 14:44 CAB (Rec: 01/04/22 14:58 CAB [id number]) Pre-Anesthesia Assessment Preferred Name Mariangel Patient Information Reviewed Via Chart Review Comment COVID screen @ 01/06/22 Primary Care Provider Venkat Thomson Seen Specialist in Last 12 Months Yes Specialist Seen Title I Paraprofessional,Emergency, Boomboat Operator Primary Language Bahamian Waiter/Waitress Cafeteria Required No Height 160.02 cm Weight 68.039 kg Body Mass Index (BMI) 26.5 Hx Anesthesia Reactions No Hx Family Anesthesia Reaction No Hx Malignant Hyperthermia No Hx Blood Transfusion Reaction No Anesthesia Review Requested No Campus Manager No alcohol intake current alcohol intake frequency a few times a week Smoking Status Never smoker Substance Use Type does not use Patient is completely paralyzed or No completely immobile Mental Status Oriented to own ability Hx Sleep Apnea No CPAP/BIPAP use not prescribed Currently Taking a Beta Odalis Yes: Metoprolol Hx Chest Pain Yes Anti-Coagulant Therapy No Has a Title I Paraprofessional Yes Cardiac Testing No Hx Pacemaker/ICD No Pacemaker Rep Required? No Gastrointestinal Symptoms Fecal Incontinence Bladder Pattern Incontinent Urinary Catheter Present No Hx Urinary Self Catheterization No Diabetes No Patient No Lactating No Presence of External or Internal Medical No Devices Received a COVID vaccine? Yes Marital Status Lives With spouse Patient Discharge Plan Description Return Home Advance Directives? Yes Power of Engineering Supervisor Yes Power of Engineering Supervisor Name Aristeo Power of Engineering Supervisor
--- NOTE | 2022-01-08 18:24 | PM.DS.1 ---
History of Present Illness History of Present Illness Date Patient Seen: 01/08/22 Time Patient Seen: 07:55 Chief complaint: OPB Narrative: Patient is an 86-year-old postop day # 1 status post LAVH/BSO/anterior and posterior repair. The Ventura catheter and vaginal packing were removed at 6:00 a.m.. There was minimal bleeding. The patient underwent a bladder trial and after having 200+ postvoid residuals, she finally was down to the 150 cc postvoid residual with a voiding of 300 cc. Patient was discharged home with instructions to empty her bladder every 2-1/2 hours. She is to call if she is unable to void, has any fever, chills, redness or drainage around the incisions, or bleeding vaginally more than spotting to light. She will follow-up in 2 weeks for postoperative visit. Discharge Providers Provider Discharge Date: 01/08/22 Primary care physician: Isabelle Acuña MD Discharge provider: Evy Goddard MD Summary Hospital Course Discharge Diagnosis: Uterine prolapse Cystocele with rectocele Status post LAVH/BSO Status post anterior and posterior repair Hospital Course: Patient is an 86-year-old 5 para 2 postop day # 1 status post LAVH/BSO/anterior and posterior repair. She passed a voiding trial this morning. No incisional issues. Pain well controlled. She is tolerating a diet. Spotting only from the vagina. Status at Discharge Cognitive/behavioral status at discharge: oriented Functional status at discharge: independent ambulation Overall status at discharge: patient is progressing back to baseline Time Spent with Patient Time spent: Less than 30 minutes Exam Vital Signs (past 8 hours): Oxygen Delivery Method Nasal Cannula Oxygen Flow Rate 0 Narrative Exam Narrative: Generally: Patient is sitting up in bed, no acute distress Lungs: Clear to auscultation bilaterally Cardiovascular: Regular rate and rhythm Abdomen: Soft and flat. Good bowel sounds. Incisions: Clean dry and intact with dressings. Extremities: No edema, negative Homans Objective Labs Result Diagrams: 01/07/22 07:15 01/07/22 07:15 [facility] Medical History (Updated 01/03/22 @ 14:37 by Evy Goddard MD) Hyperlipidemia Myocardial infarction (08/02/19) Postmenopausal atrophic vaginitis Seizure Takotsubo cardiomyopathy Surgical History (Updated 01/04/22 @ 14:50 by Jodie Caldwell RN) History of hysteroscopy (01/01/21) Social History household members: spouse Smoking Status: Never smoker alcohol intake: current Discharge Assessment & Plan Assessment and Plan Assessment: Postop day # 1 status post LAVH/BSO/anterior and posterior wall repair, doing very well Plan of Treatment: Discharge to home Follow-up in 2 weeks Discharge Plan Discharge Plan Patient Disposition: Home Provider Discharge Comment: Call with fever, chills, redness or drainage around the incision, or if not emptying bladder Call with vaginal bleeding more than spotting to light Empty bladder every 2-1/2 hours Discharge orders & Medications Discharge Orders: Discharge (Order); Ordered 01/08/22 Ordered By: Evy Goddard Prescriptions: Continued atorvastatin [Lipitor] 10 MG tablet 5 mg PO DAILY Qty: 0 cholecalciferol (vitamin D3) 250 mcg (10,000 unit) capsule 250 mcg PO DAILY cranberry 500 mg capsule 500 mg PO BID Rx Instructions: administer with meals ascorbic acid (vitamin C) 500 mg capsule 500 mg PO DAILY metoprolol succinate 25 mg tablet extended release 24 hr 12.5 mg PO DAILY biotin 1 mg tablet 1 mg PO DAILY alprazolam 0.25 mg tablet 0.25 mg PO BEDTIME PRN (Reason: Sleep, anxiety) Discontinued amoxicillin-pot clavulanate 875-125 mg tablet 1 tab PO Q12H estradiol [Vagifem] 10 mcg tablet See Rx Instructions .ROUTE .COMPLEX Qty: 18 12RF Rx Instructions: Apply one tab vaginally x 14 days at bedtime then 2 nights weekly. oxyquinoline-sod.lauryl sulfat 0.025-0.01 % gel 1 ea vaginal .weekly Qty: 113.4 3RF Rx Instructions: Use once weekly or when removing/reinserting pessary. Follow up/Referrals: Evy Goddard MD [Physician] - 2 Weeks Isabelle Acuña MD [Primary Care Provider] - Diet/Activity/Treatments Diet: Regular Activity: No heavy lifting Skin/Wound/Dressing Care Report to your healthcare provider any signs of infection, such as:: chills, fever, increased pain, unusual drainage and unusual redness Dressing: May remove outer pink dressings with attached gauze in 3 days after morning shower Leave Steri-Strips in place Visit Report/Discharge Packet Instructions: DI for Cystocele and Rectocele Repair, DI for Hysterectomy, DI for Laparoscopy Stand Alone Forms: Surgery Discharge Discharge Data Primary Care Provider: Isabelle Acuña Attending Provider: Evy Goddard
== END 2022-01-08 14:16 | disposition home or self-care (01) ==
LOC: OR 06:23 → AC 09:47 → ICU 12:09
PROVIDERS: Family Provider Family Medicine; PCP Family Medicine; Referring Provider Obstetrics & Gynecology; Visit Provider Obstetrics & Gynecology
PROC: 0UT9FZZ Resection of Uterus, Via Natural or Artificial Opening With Percutaneous Endoscopic Assistance (ICD-10-PCS; CPT 58552; principal; 2022-01-07 09:00)
PROC: 0UT24ZZ Resection of Bilateral Ovaries, Percutaneous Endoscopic Approach (ICD-10-PCS; CPT 58661; 2022-01-07 09:00)
DX: N81.89 Other female genital prolapse (principal); N81.3 Complete uterovaginal prolapse; N95.2 Postmenopausal atrophic vaginitis; I25.2 Old myocardial infarction; I51.81 Takotsubo syndrome; E78.5 Hyperlipidemia, unspecified; G40.909 Epilepsy, unspecified, not intractable, without status epilepticus; N88.8 Other specified noninflammatory disorders of cervix uteri; N80.0 Endometriosis of uterus; D25.2 Subserosal leiomyoma of uterus; N83.332 Acquired atrophy of left ovary and fallopian tube; N83.331 Acquired atrophy of right ovary and fallopian tube
CPT/HCPCS: 58552; 36415; 80048; 85025; J0131; J0171; J0690; J1100; J2405; J2704; J3010

== ENCOUNTER → 2022-01-27 11:40 | Outpatient (CLI) | payer OTHER, SELFPAY ==
[2022-01-07 14:53] VITALS: BMI 26.5
[2022-01-27 13:01] LABS: Bilirubin Urine UA NEGATIVE (NEGATIVE); Color Urine UA YELLOW; Glucose Urine UA NEGATIVE (Negative); Ketones Urine UA NEGATIVE (NEGATIVE); Leukocyte Esterase Urine UA 3+ (NEGATIVE); Nitrite Urine UA NEGATIVE (Negative); Occult Blood Urine UA 2+ (Negative); Protein Urine UA TRACE (Negative); Urobilinogen Urine UA 0.2 E.U./dL (0.2)
[2022-01-27 13:03] LABS: Appearance Urine UA Slightly Cloudy
[2022-01-27 13:13] LABS: Bacteria Urine Many (>30); Culture Indicated Urine Specimen Cultured; RBC Urine 5-10/HPF (0-5/HPF); Squamous Epithelial Cell Urine 0-1 /HPF (0-5/HPF); WBC Urine >100/HPF (0-5/HPF)
== END ==
PROVIDERS: Family Provider Family Medicine; PCP Family Medicine; Referring Provider Obstetrics & Gynecology; Visit Provider Obstetrics & Gynecology
DX: R30.0 Dysuria (principal); R35.0 Frequency of micturition
CPT/HCPCS: 81001; 87077; 87086; 87186

== ENCOUNTER → 2022-06-08 14:58 | Outpatient (CLI) | payer OTHER, SELFPAY ==
[2022-01-07 14:53] VITALS: BMI 26.5
== END ==
PROVIDERS: Family Provider Family Medicine; PCP Family Medicine; Referring Provider Family Medicine; Visit Provider Family Medicine
DX: Z78.0 Asymptomatic menopausal state (principal); Z13.820 Encounter for screening for osteoporosis; Z90.710 Acquired absence of both cervix and uterus
CPT/HCPCS: 77080

== ENCOUNTER → 2022-06-21 07:02 | Outpatient (CLI) | payer OTHER, SELFPAY ==
[2022-01-07 14:53] VITALS: BMI 26.5
[2022-06-21 08:54] LABS: Add Manual Diff / Slide Review NO; Basophils Absolute Auto 100 /uL (0-100); Basophils Percent Auto 1.3 % (0-2); Eosinophils Absolute Auto 100 /uL (0-450); Eosinophils Percent Auto 2.2 % (2-4); Hematocrit 37.4 % (36-46); Hemoglobin 12.7 g/dL (12.0-16.0); Lymphocytes Absolute Auto 1700 /uL (1100-4500); Lymphocytes Percent Auto 32.6 % (25-40); Mean Corpuscular Hemoglobin 31.5 PG (26-34); Mean Corpuscular Volume 92.6 fL (80-100); Monocytes Absolute Auto 500 /uL (0-900); Monocytes Percent Auto 9.8 % (3-14); Neutrophils Absolute Auto 2900 /uL (1500-7000); Neutrophils Percent Auto 54.1 % (50-75); Platelet Count 214 X10^3/uL (150-400); Red Blood Cell Count 4.04 X10^6/uL (4.0-5.2); Red Cell Distribution Width 13.4 % (11.6-14.8); White Blood Cell Count 5.3 X10^3/uL (4.5-11.0)
[2022-06-21 12:03] LABS: BUN Creatinine Ratio 31.5 (6-22); Blood Urea Nitrogen 23 mg/dL (7-17); Carbon Dioxide 31 mmol/L (22-32); Chloride 101 mmol/L (98-107); Cholesterol 180 mg/dL (140-199); Estimated Glomerular Filt Rate > 60 mL/min (>60); Glucose 91 mg/dL (80-110); HDL Cholesterol 60 mg/dL (40-60); HEMOLYSIS < 15 (0-50); LDL Cholesterol Calculated 103 mg/dL (<100); Potassium 4.2 mmol/L (3.4-5.1); Sodium 136 mmol/L (137-145); Triglycerides 86 mg/dL (35-150)
== END ==
PROVIDERS: Family Provider Family Medicine; PCP Family Medicine; Referring Provider Internal Medicine Cardiovascular Disease; Visit Provider Internal Medicine Cardiovascular Disease
DX: E78.5 Hyperlipidemia, unspecified (principal); I25.2 Old myocardial infarction; I51.81 Takotsubo syndrome
CPT/HCPCS: 36415; 80048; 80061; 85025

== ENCOUNTER → 2022-09-05 16:04 | Outpatient (CLI) | payer OTHER, SELFPAY ==
[2022-01-07 14:53] VITALS: BMI 26.5
== END ==
PROVIDERS: Family Provider Family Medicine; PCP Family Medicine; Visit Provider Nurse Practitioner Family
DX: R30.0 Dysuria (principal)
CPT/HCPCS: 87077; 87086; 87186

== ENCOUNTER → 2022-09-25 09:18 | Outpatient (CLI) | payer OTHER, SELFPAY ==
[2022-01-07 14:53] VITALS: BMI 26.5
== END ==
PROVIDERS: Family Provider Family Medicine; PCP Family Medicine; Visit Provider Physician Assistant
DX: N39.0 Urinary tract infection, site not specified (principal)
CPT/HCPCS: 87077; 87086; 87186

== ENCOUNTER 2022-10-26 06:57 | Emergency (ER) | payer OTHER, SELFPAY ==
[2022-01-07 14:53] VITALS: BMI 26.5
--- NOTE | 2022-10-26 07:07 | ED.EXTPRO ---
HPI - Extremity Problem General Chief complaint: Extremity Injury, Lower Stated complaint: bad knee T-7 ccan't bare weight Time Seen by Provider: 10/26/22 07:07 History of Present Illness HPI Narrative: 87-year-old female nonsmoker with history of seizures, hyperlipidemia presents to the emergency department for about 1 week of left knee pain. She states that she 1st noticed the pain when she was stretching and she felt a pop in her knee and for the next few days had pain in on occasion some tingling but by mid week her symptoms seemed to improve only to worsen again over the course of the weekend. She presented to an urgent care and had a thorough physical exam and was told she likely would need MRI as x-ray and CT scan are unlikely to provide much help given her lack of traumatic injury. She presents today walking with a cane stating that she has anterior, midline pain that seems to be worse with ambulation and improves with rest. She denies ongoing numbness, tingling and has no weakness. She denies any ankle or hip pain. She denies any back pain. Related Data Home Medications Medication Instructions Recorded Confirmed atorvastatin 10 mg tablet (Lipitor) 5 mg PO DAILY ##0 12/21/16 10/23/22 alprazolam 0.25 mg tablet 0.25 mg PO BEDTIME PRN Sleep, 11/13/20 10/23/22 anxiety biotin 1 mg tablet 1 mg PO DAILY 11/13/20 10/23/22 ascorbic acid (vitamin C) 500 mg 500 mg PO DAILY 12/30/20 10/23/22 capsule cholecalciferol (vitamin D3) 250 250 mcg PO DAILY 12/30/20 10/23/22 mcg (10,000 unit) capsule cranberry 500 mg capsule 500 mg PO BID 12/30/20 10/23/22 metoprolol succinate 25 mg 12.5 mg PO DAILY 12/10/21 10/23/22 tablet,extended release 24 hr Previous Rx's Medication Instructions Recorded ciprofloxacin HCl 500 mg tablet 500 mg PO BID #14 tabs 01/28/22 estradiol 10 mcg vaginal tablet See Rx Instructions .Route 05/20/22 (Vagifem) .COMPLEX #18 tabs cephalexin 500 mg tablet 500 mg PO BID #20 tabs 10/19/22 Allergies Allergy/AdvReac Type Severity Reaction Status Date / Time nitrofurantoin Allergy Severe unknown Verified 10/23/22 10:07 sulfamethoxazole Allergy Severe unknown Verified 10/23/22 10:07 [From Septra] trimethoprim [From Septra] Allergy Severe unknown Verified 10/23/22 10:07 norepinephrine Allergy Unknown Verified 10/23/22 10:07 [NOREPINEPHRINE] Sulfa (Sulfonamide AdvReac Unknown Verified 10/23/22 10:07 Antibiotics) Review of Systems Review of Systems Narrative: GENERAL: Denies chills, fatigue, malaise, fever, sweats. HEENT: Denies sinus pain, ear pain, sore throat, difficulty swallowing, dizziness. RESPIRATORY: Denies dyspnea, cough, wheezing, hemoptysis, sputum. CARDIOVASCULAR: Denies chest pain, palpitations, orthopnea, edema, GASTROINTESTINAL: Denies nausea, vomiting, abdominal pain, diarrhea, constipation, melena. : Denies dysuria, frequency, incontinence, hematuria, urinary retention. MUSCULOSKELETAL: See HPI SKIN: Denies rash, skin lesions, or other NEUROLOGIC: Denies weakness, headache, numbness, change in speech, confusion, seizures, incoordination. PSYCHIATRIC: No concerning psychosocial issues. 12 point review of systems is negative except for those stated above Patient History Medical History Hyperlipidemia Myocardial infarction (08/02/19) Postmenopausal atrophic vaginitis Seizure Takotsubo cardiomyopathy Surgical History History of hysteroscopy (01/01/21) Social History household members: spouse Smoking Status: Never smoker alcohol intake: current Smoking Status: Never smoker alcohol intake frequency: a few times a week Substance Use Type: does not use Exam Narrative Exam Narrative: GENERAL: [87] year old patient appears stated age. Well-developed patient, in mild distress. HEAD: Atraumatic. Normocephalic. EYES: Pupils equal round and reactive. Extraocular motions intact. No scleral icterus. No injection or drainage. ENT: Nose without bleeding, purulent drainage. Throat without erythema, tonsillar hypertrophy or exudate. Airway patent. NECK: Trachea midline. Non tender CARDIOVASCULAR: Regular rate and rhythm without murmurs, gallops, or rubs. RESPIRATORY: Clear to auscultation. Breath sounds equal bilaterally. No wheezes, rales, or rhonchi. GASTROINTESTINAL: Abdomen soft, non-tender, nondistended. EXTREMITIES: No effusion, erythema or warmth. No bony tenderness, no joint line tenderness, no evidence of ligamentous laxity. Negative Maria De Jesus's. No pain with Candi's. Only pain seems to be with gentle, active flexion at the knee in the midline and then distal portion of the patellar tendon. BACK: Nontender without deformity or crepitance. No flank tenderness. NEURO: AOx3. SKIN: No rash or erythema of visible areas Initial Vital Signs Initial Vital Signs: Vital Signs Temperature 97.8 F 10/26/22 07:15 Pulse Rate 71 10/26/22 07:15 Respiratory Rate 17 10/26/22 07:15 Blood Pressure 134/62 10/26/22 07:15 Pulse Oximetry 98 10/26/22 07:15 Oxygen Delivery Method Room Air 10/26/22 07:15 Course Orders Ordered: ED Orders 10/26/22 07:09 XR knee LT 3V Stat Vital Signs Vital signs: Vital Signs - 8 hr 10/26/22 07:15 Temperature 97.8 F Pulse Rate 71 Respiratory Rate 17 Blood Pressure 134/62 Pulse Oximetry 98 Oxygen Delivery Method Room Air MDM - Extremity (Nontraumatic) MDM Narrative Medical decision making narrative: [87] year old patient presents with left knee pain Multiple etiologies for patient's symptoms considered including, but not limited to: [Sprain, strain, arthritis, fracture, dislocation versus other] Prior Charts reviewed in our EMR Primary Historian: patient Imaging reviewed: No acute process Patient with reassuring history and physical exam and no acute findings on x-ray. Most likely sprain or strain. No evidence of neurovascular compromise, no suspicion septic arthritis. Discussed [id number] pain medications and anti-inflammatories along with contact info for orthopedist, I did suggest that based on their opinion and expertise they may pursue further imaging such as CT scan or more likely MRI versus physical therapy Findings and discharge diagnosis discussed with patient/family followed by verbalization of understanding Return precautions discussed with patient/family whom verbalize understanding of diagnosis and plan Discharge Plan Departure Patient Disposition: Home Clinical Impression: Strain of left patellar tendon Instructions: DI for Knee Pain Activity Restrictions/Additional Instructions: *You have been diagnosed with [left knee strain. As we discussed your history, physical exam, and Xray are reassuring and there is no evidence of fracture, dislocation , or infection. ] *What to do: *Please continue to take your regular medications as directed. *Please follow up with your primary care provider in 2-3 days, call for an appointment. Let them know you were seen in the Emergency Department and that we ask that you be seen in follow up. We will electronically transmit a record of today's note if your PCP is in our system * as we discussed, you would likely benefit from an orthopedic referral. Please call Dr. Isaac at [facility], the numbers listed below. Please call the office later this morning, let them know you were seen in the emergency department and we would like you seen in follow-up. I will electronically transmitted a copy of today's note. *Return to Emergency Department if you should have any new, worsening or concerning symptoms, such as [fever greater than 101 F, shaking chills, worsening pain, persistent vomiting or other bothersome symptoms] Prescriptions: No Action atorvastatin [Lipitor] 10 MG tablet 5 mg PO DAILY Qty: 0 ciprofloxacin HCl 500 mg tablet 500 mg PO BID Qty: 14 0RF estradiol [Vagifem] 10 mcg tablet See Rx Instructions .ROUTE .COMPLEX Qty: 18 12RF Rx Instructions: Apply one tab vaginally x 14 days at bedtime then 2 nights weekly. cephalexin 500 mg tablet 500 mg PO BID Qty: 20 4RF cholecalciferol (vitamin D3) 250 mcg (10,000 unit) capsule 250 mcg PO DAILY cranberry 500 mg capsule 500 mg PO BID Rx Instructions: administer with meals ascorbic acid (vitamin C) 500 mg capsule 500 mg PO DAILY metoprolol succinate 25 mg tablet extended release 24 hr 12.5 mg PO DAILY biotin 1 mg tablet 1 mg PO DAILY alprazolam 0.25 mg tablet 0.25 mg PO BEDTIME PRN (Reason: Sleep, anxiety) Referrals: Martin Isaac MD [Physician] - Isabelle Acuña MD [Primary Care Provider] - Stand Alone Forms: Patient Portal/API
--- NOTE | 2022-10-26 07:09 | DI.RAD.S_ITS ---
PROCEDURE: XR KNEE LT 3V INDICATIONS: knee pain, cannot ambulate TECHNIQUE: 3 views of the knee were acquired. COMPARISON: [facility], , KNEE 3V LEFT, 03/07/2013, 15:41. FINDINGS: Bones: No fractures or dislocations. No suspicious bony lesions. Soft tissues: No joint effusion. No suspicious soft tissue calcifications. IMPRESSION: 1. No acute osseous abnormalities. Dictated by: Lizette Fernandez M.D. on 10/26/2022 at 8:52 Approved by: Lizette Fernandez M.D. on 10/26/2022 at 8:56
[2022-10-26 07:15] VITALS: BP 134/62; PULSE 71; RESP 17; TEMP 36.6; O2SAT 98; BMI 27.4
== END 2022-10-26 07:54 | disposition home or self-care (01) ==
PROVIDERS: Emergency Provider Emergency Medicine; Family Provider Family Medicine; PCP Family Medicine
DX: S76.112A Strain of left quadriceps muscle, fascia and tendon, initial encounter (principal)
CPT/HCPCS: 73562; 99281; 99283

== ENCOUNTER → 2022-12-31 09:17 | Outpatient (CLI) | payer OTHER, SELFPAY ==
[2022-01-07 14:53] VITALS: BMI 26.5
[2022-12-31 10:42] LABS: Appearance Urine UA CLEAR; Bilirubin Urine UA NEGATIVE (NEGATIVE); Color Urine UA YELLOW; Glucose Urine UA NEGATIVE (Negative); Ketones Urine UA NEGATIVE (NEGATIVE); Leukocyte Esterase Urine UA 2+ (NEGATIVE); Nitrite Urine UA NEGATIVE (Negative); Occult Blood Urine UA 2+ (Negative); Protein Urine UA NEGATIVE (Negative); Urobilinogen Urine UA 0.2 E.U./dL (0.2)
[2022-12-31 10:43] LABS: pH Urine UA 6.5 (4.5-8.0)
[2022-12-31 10:54] LABS: Bacteria Urine Many (>30); Culture Indicated Urine Specimen Cultured; RBC Urine 5-10/HPF (0-5/HPF); Squamous Epithelial Cell Urine 0-1 /HPF (0-5/HPF); WBC Urine 10-30/HPF (0-5/HPF)
== END ==
PROVIDERS: Family Provider Family Medicine; PCP Family Medicine; Referring Provider Obstetrics & Gynecology; Visit Provider Obstetrics & Gynecology
DX: N39.0 Urinary tract infection, site not specified (principal)
CPT/HCPCS: 81003; 81015; 87077; 87086; 87186

== ENCOUNTER → 2023-01-05 07:47 | Outpatient (CLI) | payer OTHER, SELFPAY ==
[2022-01-07 14:53] VITALS: BMI 26.5
[2023-01-05 10:03] LABS: Appearance Urine UA CLEAR; Bilirubin Urine UA NEGATIVE (NEGATIVE); Color Urine UA YELLOW; Glucose Urine UA NEGATIVE (Negative); Ketones Urine UA NEGATIVE (NEGATIVE); Leukocyte Esterase Urine UA NEGATIVE (NEGATIVE); Nitrite Urine UA NEGATIVE (Negative); Occult Blood Urine UA NEGATIVE (Negative); Protein Urine UA NEGATIVE (Negative); Urobilinogen Urine UA 0.2 E.U./dL (0.2)
== END ==
PROVIDERS: Family Provider Family Medicine; PCP Family Medicine; Referring Provider Obstetrics & Gynecology; Visit Provider Obstetrics & Gynecology
DX: R39.9 Unspecified symptoms and signs involving the genitourinary system (principal)
CPT/HCPCS: 81003

== ENCOUNTER → 2023-01-17 11:51 | Outpatient (CLI) | payer OTHER, SELFPAY ==
[2022-01-07 14:53] VITALS: BMI 26.5
[2023-01-17 13:13] LABS: Appearance Urine UA CLEAR; Bilirubin Urine UA NEGATIVE (NEGATIVE); Color Urine UA YELLOW; Glucose Urine UA NEGATIVE (Negative); Ketones Urine UA NEGATIVE (NEGATIVE); Leukocyte Esterase Urine UA 2+ (NEGATIVE); Nitrite Urine UA NEGATIVE (Negative); Occult Blood Urine UA 2+ (Negative); Protein Urine UA NEGATIVE (Negative); Urobilinogen Urine UA 0.2 E.U./dL (0.2)
[2023-01-17 13:31] LABS: pH Urine UA 5.5 (4.5-8.0)
[2023-01-17 14:05] LABS: Bacteria Urine Few (2-10); Culture Indicated Urine Specimen Cultured; RBC Urine 5-10/HPF (0-5/HPF); Squamous Epithelial Cell Urine None Seen (0-5/HPF); WBC Urine 10-30/HPF (0-5/HPF)
== END ==
PROVIDERS: Family Provider Family Medicine; PCP Family Medicine; Referring Provider Obstetrics & Gynecology; Visit Provider Obstetrics & Gynecology
DX: R39.9 Unspecified symptoms and signs involving the genitourinary system (principal)
CPT/HCPCS: 81001; 87077; 87086; 87186

== ENCOUNTER → 2023-01-28 09:03 | Outpatient (CLI) | payer OTHER, SELFPAY ==
[2022-01-07 14:53] VITALS: BMI 26.5
== END ==
PROVIDERS: Family Provider Family Medicine; PCP Family Medicine; Referring Provider Obstetrics & Gynecology; Visit Provider Obstetrics & Gynecology
DX: N39.0 Urinary tract infection, site not specified (principal)
CPT/HCPCS: 87077; 87086; 87186

== ENCOUNTER → 2023-02-16 10:47 | Outpatient (CLI) | payer OTHER, SELFPAY ==
[2022-01-07 14:53] VITALS: BMI 26.5
--- NOTE | 2023-02-16 | DI.RAD.S_ITS ---
PROCEDURE: XR LUMBAR SPINE 2-3V INDICATIONS: Low back pain, unspecified TECHNIQUE: 3 views of the lumbar spine were acquired. COMPARISON: [facility], CR, XR LUMBAR SPINE MIN 4V, 11/29/2019, 14:36. FINDINGS: Bones: 5 [id number] vertebrae are present. Redemonstrated right convexity curvature of the lumbar spine centered at L2. 8 millimeters retrolisthesis L2 on L3, 6 millimeters retrolisthesis L1 on L2. Severe multilevel degenerative changes with disc height loss, endplate spurring, and facet arthropathy. No lumbar vertebral body compression fracture identified. Soft tissues: Overlying bowel gas pattern is normal. No suspicious soft tissue calcifications. IMPRESSION: Multilevel degenerative changes of the lumbar spine. Dictated by: Jeison Patel M.D. on 02/16/2023 at 18:17 Approved by: Jeison Patel M.D. on 02/16/2023 at 18:19
== END ==
PROVIDERS: Family Provider Family Medicine; PCP Family Medicine; Referring Provider Internal Medicine; Visit Provider Internal Medicine
DX: M54.50 Low back pain, unspecified (principal); M47.816 Spondylosis without myelopathy or radiculopathy, lumbar region
CPT/HCPCS: 72100

== ENCOUNTER → 2023-03-08 17:00 | Outpatient (CLI) | payer OTHER, SELFPAY ==
[2022-01-07 14:53] VITALS: BMI 26.5
[2023-03-08 18:07] LABS: Hematocrit 34.9 % (36-46); Hemoglobin 11.9 g/dL (12.0-16.0); Mean Corpuscular HGB Conc 34.3 % (30-36); Mean Corpuscular Hemoglobin 31.6 PG (26-34); Mean Corpuscular Volume 92.3 fL (80-100); Platelet Count 150 X10^3/uL (150-400); Red Blood Cell Count 3.78 X10^6/uL (4.0-5.2); Red Cell Distribution Width 13.2 % (11.6-14.8); White Blood Cell Count 4.6 X10^3/uL (4.5-11.0)
[2023-03-08 18:21] LABS: Alanine Aminotransferase 26 IU/L (<35); Albumin Globulin Ratio 1.5 (1.0-2.8); Alkaline Phosphatase 57 U/L (38-126); Aspartate Aminotransferase 26 IU/L (14-36); BUN Creatinine Ratio 27.2 (6-22); Bilirubin Total 0.3 mg/dL (0.2-1.3); Blood Urea Nitrogen 22 mg/dL (7-17); Carbon Dioxide 31 mmol/L (22-32); Chloride 101 mmol/L (98-107); Cholesterol 222 mg/dL (140-199); Estimated Glomerular Filt Rate > 60 mL/min (>60); Globulin 2.6 g/dL (1.7-4.1); Glucose 94 mg/dL (80-110); HDL Cholesterol 69 mg/dL (40-60); HEMOLYSIS < 15 (0-50); LDL Cholesterol Calculated 126 mg/dL (<100); Potassium 4.1 mmol/L (3.4-5.1); Sodium 136 mmol/L (137-145); Total Protein 6.6 g/dL (6.3-8.2); Triglycerides 134 mg/dL (35-150)
[2023-03-08 18:51] LABS: TSH w/ Reflex to FT4 2.42 uIU/mL (0.47-4.68)
== END ==
PROVIDERS: Family Provider Family Medicine; PCP Internal Medicine; Referring Provider Internal Medicine; Visit Provider Internal Medicine
DX: E78.2 Mixed hyperlipidemia (principal); I10 Essential (primary) hypertension; Z86.79 Personal history of other diseases of the circulatory system
CPT/HCPCS: 36415; 80053; 80061; 84443; 85027

== ENCOUNTER → 2023-03-09 12:45 | Outpatient (CLI) | payer OTHER, SELFPAY ==
[2022-01-07 14:53] VITALS: BMI 26.5
[2023-03-09 14:26] LABS: Appearance Urine UA CLEAR; Bilirubin Urine UA NEGATIVE (NEGATIVE); Color Urine UA YELLOW; Glucose Urine UA NEGATIVE (Negative); Ketones Urine UA NEGATIVE (NEGATIVE); Leukocyte Esterase Urine UA 1+ (NEGATIVE); Nitrite Urine UA NEGATIVE (Negative); Occult Blood Urine UA NEGATIVE (Negative); Protein Urine UA NEGATIVE (Negative); Urobilinogen Urine UA 0.2 E.U./dL (0.2)
[2023-03-09 14:37] LABS: Culture Indicated Urine Specimen Cultured
[2023-03-09 14:38] LABS: Bacteria Urine None Seen; RBC Urine None Seen (0-5/HPF); Squamous Epithelial Cell Urine None Seen (0-5/HPF); WBC Urine 0-1/HPF (0-5/HPF)
== END ==
PROVIDERS: Family Provider Family Medicine; PCP Internal Medicine; Referring Provider Obstetrics & Gynecology; Visit Provider Obstetrics & Gynecology
DX: N39.0 Urinary tract infection, site not specified (principal)
CPT/HCPCS: 81001; 87086

== ENCOUNTER → 2023-04-11 16:40 | Outpatient (CLI) | payer OTHER, SELFPAY ==
[2023-03-17 16:42] VITALS: BMI 26.5
== END ==
PROVIDERS: Family Provider Family Medicine; PCP Internal Medicine; Visit Provider Specialist
DX: N39.0 Urinary tract infection, site not specified (principal)
CPT/HCPCS: 87077; 87086; 87186

== ENCOUNTER → 2023-05-24 13:46 | Outpatient (CLI) | payer OTHER, SELFPAY ==
[2023-05-11 09:21] VITALS: BMI 26.5
[2023-05-24 15:29] LABS: Appearance Urine UA CLOUDY; Bilirubin Urine UA NEGATIVE (NEGATIVE); Color Urine UA YELLOW; Glucose Urine UA NEGATIVE (Negative); Ketones Urine UA NEGATIVE (NEGATIVE); Leukocyte Esterase Urine UA 2+ (NEGATIVE); Nitrite Urine UA POSITIVE (Negative); Occult Blood Urine UA 1+ (Negative); Protein Urine UA TRACE (Negative); Specific Gravity Urine UA 1.015 (1.000-1.035); Urobilinogen Urine UA 0.2 E.U./dL (0.2)
[2023-05-24 15:33] LABS: pH Urine UA 6.5 (4.5-8.0)
[2023-05-24 15:43] LABS: Bacteria Urine Many (>30); Culture Indicated Urine Specimen Cultured; RBC Urine 10-30/HPF (0-5/HPF); Squamous Epithelial Cell Urine 1-5 /HPF (0-5/HPF); WBC Urine >100/HPF (0-5/HPF)
== END ==
PROVIDERS: Family Provider Family Medicine; PCP Internal Medicine; Referring Provider Physician Assistant Medical; Visit Provider Physician Assistant Medical
DX: R30.0 Dysuria (principal)
CPT/HCPCS: 81001; 87077; 87086; 87186

== ENCOUNTER → 2023-05-30 13:38 | Outpatient (CLI) | payer OTHER, SELFPAY ==
[2023-05-11 09:21] VITALS: BMI 26.5
[2023-06-01 15:37] LABS: Candida species Negative (Negative); Gardnerella vaginalis Negative (Negative); Trichomoas vaginalis Negative (Negative)
== END ==
PROVIDERS: Family Provider Family Medicine; PCP Internal Medicine; Visit Provider Student in an Organized Health Care Education/Training Program
DX: N39.0 Urinary tract infection, site not specified (principal)
CPT/HCPCS: 87480; 87510; 87660

== ENCOUNTER → 2024-02-02 10:17 | Outpatient (CLI) | payer OTHER, SELFPAY ==
[2023-09-14 08:17] VITALS: BMI 26.5
[2024-02-02 12:14] LABS: Influenza A - CEPHEID Flu A NEGATIVE (NEGATIVE); Influenza B - CEPHEID Flu B NEGATIVE (NEGATIVE); Respiratory Syncytial Virus Negative (Negative)
[2024-02-02 12:16] LABS: COVID-19 CEPHEID 4-PLEX PCR POSITIVE (Negative)
== END ==
PROVIDERS: Family Provider Family Medicine; PCP Internal Medicine; Referring Provider Student in an Organized Health Care Education/Training Program; Visit Provider Student in an Organized Health Care Education/Training Program
DX: J02.9 Acute pharyngitis, unspecified (principal); R05.9 Cough, unspecified
CPT/HCPCS: 0241U

== ENCOUNTER → 2024-03-14 09:22 | Outpatient (CLI) | payer OTHER, SELFPAY ==
[2023-09-14 08:17] VITALS: BMI 26.5
[2024-03-14 10:46] LABS: Aspartate Aminotransferase 28 IU/L (14-36); BUN Creatinine Ratio 28.6 (6-22); Blood Urea Nitrogen 24 mg/dL (7-17); Calcium 9.1 mg/dL (8.4-10.2); Carbon Dioxide 29 mmol/L (22-32); Chloride 102 mmol/L (98-107); Cholesterol 191 mg/dL (140-199); Estimated Glomerular Filt Rate > 60 mL/min (>60); Glucose 90 mg/dL (80-110); HDL Cholesterol 71 mg/dL (40-60); HEMOLYSIS < 15 (0-50); LDL Cholesterol Calculated 99 mg/dL (<100); Potassium 4.6 mmol/L (3.4-5.1); Sodium 138 mmol/L (137-145); Triglycerides 105 mg/dL (35-150)
== END ==
PROVIDERS: Family Provider Family Medicine; PCP Internal Medicine; Referring Provider Internal Medicine; Visit Provider Internal Medicine
DX: E78.2 Mixed hyperlipidemia (principal); I10 Essential (primary) hypertension
CPT/HCPCS: 36415; 80048; 80061; 84450

== ENCOUNTER → 2024-04-23 08:49 | Outpatient (CLI) | payer OTHER, SELFPAY ==
[2023-09-14 08:17] VITALS: BMI 26.5
[2024-04-23 09:32] LABS: COVID-19 CEPHEID 4-PLEX PCR Negative (Negative); Influenza A - CEPHEID Flu A NEGATIVE (NEGATIVE); Influenza B - CEPHEID Flu B NEGATIVE (NEGATIVE); Respiratory Syncytial Virus Negative (Negative)
== END ==
PROVIDERS: Family Provider Family Medicine; PCP Internal Medicine; Referring Provider Nurse Practitioner Family; Visit Provider Nurse Practitioner Family
DX: R05.1 Acute cough (principal)
CPT/HCPCS: 0241U

== ENCOUNTER → 2024-04-23 09:28 | Outpatient (CLI) | payer OTHER, SELFPAY ==
[2023-09-14 08:17] VITALS: BMI 26.5
--- NOTE | 2024-04-23 09:29 | DI.RAD.S_ITS ---
PROCEDURE: XR CHEST 2V INDICATIONS: Cough TECHNIQUE: 2 views of the chest were acquired. COMPARISON: [facility], CR, XR CHEST 2V, 07/24/2021, 13:54. FINDINGS: Surgical changes and devices: None. Lungs and pleura: Lungs appear clear. No consolidation. No pleural effusions or pneumothorax. Mediastinum: Mediastinal contours are normal. Heart size is normal. Bones and chest wall: No suspicious bony abnormalities. Soft tissues appear unremarkable. IMPRESSION: No acute cardiopulmonary abnormality is seen. Dictated by: Alan Gracia M.D. on 04/23/2024 at 11:06 Approved by: Alan Gracia M.D. on 04/23/2024 at 11:06
== END ==
PROVIDERS: Family Provider Family Medicine; PCP Internal Medicine; Referring Provider Nurse Practitioner Family; Visit Provider Nurse Practitioner Family
DX: R05.1 Acute cough (principal)
CPT/HCPCS: 0241U; 71046

== ENCOUNTER → 2024-07-06 09:36 | Outpatient (CLI) | payer OTHER, SELFPAY ==
[2023-09-14 08:17] VITALS: BMI 26.5
--- NOTE | 2024-07-06 09:38 | DI.RAD.S_ITS ---
PROCEDURE: XR CHEST 2V INDICATIONS: 2 weeks cough, fatigue TECHNIQUE: 2 views of the chest were acquired. COMPARISON: [facility], CR, XR CHEST 2V, 04/23/2024, 8:38. FINDINGS: Surgical changes and devices: None. Lungs and pleura: Lungs are clear. No pleural effusions or pneumothorax. Mediastinum: Mediastinal contours are normal. Heart size is normal. Bones and chest wall: No suspicious bony abnormalities. Soft tissues appear unremarkable. IMPRESSION: No acute cardiopulmonary abnormality is seen. Dictated by: Johnathan Grider M.D. on 07/06/2024 at 11:02 Approved by: Johnathan Grider M.D. on 07/06/2024 at 11:02
== END ==
PROVIDERS: Family Provider Family Medicine; PCP Internal Medicine; Referring Provider Student in an Organized Health Care Education/Training Program; Visit Provider Student in an Organized Health Care Education/Training Program
DX: R05.9 Cough, unspecified (principal); R53.83 Other fatigue
CPT/HCPCS: 71046

== ENCOUNTER → 2024-10-20 08:50 | Outpatient (CLI) | payer OTHER, SELFPAY ==
[2023-09-14 08:17] VITALS: BMI 26.5
--- NOTE | 2024-10-20 08:52 | DI.RAD.S_ITS ---
PROCEDURE: XR CHEST 2V INDICATIONS: Cough TECHNIQUE: 2 views of the chest were acquired. COMPARISON: [facility], CR, XR CHEST 2V, 07/06/2024, 9:48. [facility], CR, XR CHEST 2V, 04/23/2024, 8:38. FINDINGS AND IMPRESSION: Mild diffuse peribronchial thickening probably viral/atypical etiology. No airspace consolidation or pleural effusion. Normal heart size. Aortic calcifications. Degenerative osseous changes. Dictated by: Ruperto Johnson M.D. on 10/20/2024 at 22:21 Approved by: Ruperto Johnson M.D. on 10/20/2024 at 22:22
== END ==
PROVIDERS: Family Provider Family Medicine; PCP Internal Medicine; Referring Provider Nurse Practitioner Family; Visit Provider Nurse Practitioner Family
DX: R05.9 Cough, unspecified (principal); I70.0 Atherosclerosis of aorta
CPT/HCPCS: 71046

== ENCOUNTER → 2025-03-25 10:41 | Outpatient (CLI) | payer OTHER, SELFPAY ==
[2025-01-29 10:11] VITALS: BMI 26.5
[2025-03-25 11:41] LABS: Blood Urea Nitrogen 26 mg/dL (7-17); Calcium 9.1 mg/dL (8.4-10.2); Carbon Dioxide 31 mmol/L (22-32); Chloride 103 mmol/L (98-107); Cholesterol 184 mg/dL (140-199); Estimated Glomerular Filt Rate > 60 mL/min (>60); Glucose 94 mg/dL (70-99); HDL Cholesterol 72 mg/dL (40-60); HEMOLYSIS < 15 (0-50); Potassium 4.2 mmol/L (3.4-5.1); Sodium 139 mmol/L (137-145); Triglycerides 149 mg/dL (35-150)
== END ==
PROVIDERS: Family Provider Family Medicine; PCP Internal Medicine; Referring Provider Internal Medicine; Visit Provider Internal Medicine
DX: I10 Essential (primary) hypertension (principal); E78.2 Mixed hyperlipidemia
CPT/HCPCS: 36415; 80048; 80061; 84450

== ENCOUNTER 2025-05-13 08:23 | Day surgery (SDC) | payer OTHER, SELFPAY ==
[2025-01-29 10:11] VITALS: BMI 26.5
[2025-05-10 10:49] VITALS: BMI 28.5
--- NOTE | 2025-05-10 16:32 | PM.PREOP ---
Pre-operative Note COVID-19 COVID-19 status: Not tested Interval Note History & Physical reviewed/Exam performed by Physician: Yes Changes to H&P: No
--- NOTE | 2025-05-10 16:33 | PM.OP.1 ---
Operative Date/Time/Diagnoses Date of procedure: 05/13/25 Time of procedure: 09:45 Pre-op diagnosis: Functional dermatochalasis bilateral, functional ectropion bilateral Post-op diagnosis: same Procedure & Clinicians Procedure: Preoperative diagnoses: 1. Bilateral upper lid dermatochalasis 2. Bilateral lower lid ectropion 3. History of gastrointestinal reflux disease 4. Atypical absence seizure none refractory 2019 to present Postoperative diagnoses: 1. Bilateral upper lid dermatochalasis treated with blepharoplasty 2. Status post ectropion repair 3. Punctal malrotation with punctal stenosis. Procedure: Bilateral upper blepharoplasty for functional symptoms. Bilateral lower lid functional ectropion repair. Bilateral lower lid punctal probe and 3 snip procedure Surgeon: Bailey Stern MD Complications: none Specimen: None Blood loss: Less than 3 mL Anesthesia: Local infiltration with monitored standby. Indications: Bilateral upper lids obstructing superior vision. Preoperative external photographs taken and loss of vision to within 2 mm of marginal light reflex. Functional surgery. Bilateral lower lid laxity with exposure symptoms and malrotated puncta. Denies sleep Patient presents with excessive irritation and tearing from exposure due to bilateral lower lid laxity malposition the of the lacrimal puncta which were also closed. The patient has failed conservative measures including lubrication and antibiotic ointment and desires surgery to improve these symptoms. Procedure: In the preoperative holding area the amount skin and subcutaneous tissue to be removed was marked with indelible ink. The contours were carefully checked for symmetry and planned procedure discussed with the patient. The patient was taken to the operating room. IV sedation was given. Proparacaine drops were placed in both eyes for comfort. Local infiltration of anesthetic 2.5 cc into each upper lid and lateral canthus bilaterally, consisting of 1% xylocaine with epinephrine, normal saline and 1 cc hyluronidase was placed. This was then supplemented with full strength 2% xylocaine with epinephrine, 0.5% bupivacaine, and 1 cc hyalurondase. The face was prepped in an open manner. Attention was placed to the right upper lid. Using the previous stearns a number 15. -Enrique blade was used to incise a skin muscle flap. The flap was lifted and removed. Cautery was applied as needed. Contouring of the muscle belly was also performed. Exploration of the nasal and preoperneurotic fat pads were performed removal and contouring with hemostat and scissors as well as cautery were performed. The lid was then closed with running and interrupted 6 0 Vicryl sutures. Attention was placed to the right lower lid. A punctal dilator was used to enlarge the punctum. It was then probed to the nose. Tenotomy scissors were used to make a 3 snip procedure to enlarge the punctum permanently. Attention was placed to the lateral canthus. A 15. Bard-Enrique blade was used to make an incision for 1 cm. The periosteum was exposed. Cautery was used as needed. The inferior canthal tendon was lysed with scissors. A tarsal strip was formed with clearance of the anterior and posterior lamella and any exposed lashes. Minimal shortening was performed. The strip was then transected with 4.0 Mersilene type suture which was placed double-armed through the periosteum and tied with multiple knots at the orbital rim. The knots were then buried through the tissue prior to cutting sutures The outer tarsus and lid was then closed with 6 0 interrupted sutures. There was minimal bleeding. The patient returned to the recovery room in good condition. Sutures will be removed in the office in approximately 10 days. Same procedures were repeated for the left upper lid and lower lid. The Betadine was removed. Maxitrol ointment was placed to suture line. She returned to recovery room in stable condition. Instructions for postoperative cold packs were reviewed. Bailey Stern MD. Same procedure(s) as scheduled: Yes Surgeon: Bailey Stern Assisted?: No Anesthesia Type: MAC +/- Operative Notes Findings: Dermatochalasis both eyes and ectropion lower lid as Specimen(s): none sent Applied: device(s) (Leg compression device for clot prevention) Estimated Blood Loss (mL): 2 Procedure in detail: See above Complications: none Post-operative Plan for aftercare: See procedure. Needs antibiotic ointment to sutures for 10 days and cool compresses off almost constantly for the next 24 and 4 times a day for a week. Continue our neck cut under the tongue. Tylenol as needed. Handout given to patient
[2025-05-13] VITALS (8 sets, daily range): BP systolic 109–145; BP diastolic 55–71; PULSE 59–61; RESP 13–24; TEMP 36.1–36.4; O2SAT 95–99
[2025-05-13] MEDS: ACETAMINOPHEN 325 MG TABLET 975 MG PO (08:56)
[2025-05-13] MEDS: LACTATED RINGERS 1,000 ML 42 ML IV (09:06)
[2025-05-13] MEDS: PROPARACAINE 0.5% OPHTH SOL 2 DROPS EYE-BOTH (10:15)
[2025-05-13] MEDS: LIDOCAINE 2% W/EPI INJ 10 ML VIAL INJ (10:39)
[2025-05-13] MEDS: LIDOCAINE 1% W/EPI 10ML 20 ML INJ (10:42)
[2025-05-13] MEDS: HYALURONIDASE 150 UNIT/ML VIAL (AMPHADASE) INJ (10:45)
[2025-05-13] MEDS: SODIUM CHLORIDE 0.9% FLUSH 10 ML IV (10:47)
== END 2025-05-13 14:00 | disposition home or self-care (01) ==
PROVIDERS: Family Provider Family Medicine; PCP Internal Medicine; Referring Provider Ophthalmology; Visit Provider Ophthalmology
PROC: (CPT 67917; principal; 2025-05-13 09:45)
PROC: (CPT 67917; 2025-05-13 09:45)
DX: H02.831 Dermatochalasis of right upper eyelid (principal); H02.834 Dermatochalasis of left upper eyelid; H02.132 Senile ectropion of right lower eyelid; H02.135 Senile ectropion of left lower eyelid
CPT/HCPCS: 67917; 15823; J1100; J2704; J3010; J3470; J7120